=== PATIENT | female | born 1940 | race African-American/Black ===

== ENCOUNTER 2017-03-11 17:13 | Emergency (ER) | payer OTHER ==
--- NOTE | 2017-03-11 17:29 | PDOC ---
Attending Attestation - Resident Resident Name: Levi Wu - ED Attending Attestation I have performed the following: I have examined & evaluated the patient, The case was reviewed & discussed with the resident, I agree w/resident's findings & plan, Exceptions are as noted - HPI HPI: 03/11/17 17:28 low blood sugar - Physicial Exam PE: 03/11/17 17:28 Awake Conversant Feeling Better after arrival by EMS VSS - Medical Decision Making 03/11/17 17:[address] Wu Assessment and Plan
[2017-03-11 17:48] VITALS: TEMP 97.6; BMI 22.2
--- NOTE | 2017-03-11 18:12 | PDOC ---
History of Present Illness - General Chief Complaint: Blood Sugar Problem Stated Complaint: BLOOD SUGAR PROBLEM Time Seen by Provider: 03/11/17 17:25 History Source: Patient, Family Exam Limitations: Other (patient is a poor historian) - History of Present Illness Initial Comments: 03/11/17 18:01 Patient is a 77F with history of glaucoma (s/p left eye removal), DM, HTN and seizures here today complaining of hypoglycemia. EMS reports that her initial blood sugar was in the 30s. They were unable to obtain IV access in the field so they used IM glucagon. Her blood sugar was then in the 80s. Repeat blood sugar in the ED was 108. Patient's family says that she only ate some chicken soup today, but the patient says she's eating good. Patient has poor insight into her condition. She does not know what her medications are other than she doesn't take insulin. She denies any symptoms, including chest pain, shortness of breath, abdominal pain and headache. She denies urinating on herself, despite her smelling of urine. Past History - Past Medical History Allergies/Adverse Reactions: Allergies Allergy/AdvReac Type Severity Reaction Status Date / Time No Known Allergies Allergy Verified 03/11/17 17:50 Home Medications: Ambulatory Orders Unobtainable Home Med List 0 dose .ROUTE UTDICT 04/17/12 Diabetes: Yes Seizures: Yes - Suicide/Smoking/Psychosocial Hx Smoking Status: No Smoking History: Current every day smoker Years of Tobacco Use: 20 Have you smoked in the past 12 months: Yes Number of Cigarettes Smoked Daily: 3 Information on smoking cessation initiated: No Hx Alcohol Use: Yes Drug/Substance Use Hx: No Substance Use Type: Alcohol Review of Systems - Review of Systems Comments:: 03/11/17 18:12 GENERAL/CONSTITUTIONAL: No fever or chills. No weakness. HEAD, EYES, EARS, NOSE AND THROAT: No change in vision. No sore throat. CARDIOVASCULAR: No chest pain or shortness of breath RESPIRATORY: No cough, wheezing, or hemoptysis. GASTROINTESTINAL: No nausea, vomiting, diarrhea or constipation. GENITOURINARY: No dysuria, frequency, or change in urination. MUSCULOSKELETAL: No joint or muscle swelling or pain. No neck or back pain. SKIN: No rash NEUROLOGIC: No headache, vertigo, loss of consciousness, or change in strength/ sensation. ENDOCRINE: No increased thirst. No abnormal weight change ALLERGIC/IMMUNOLOGIC: No hives or skin allergy. *Physical Exam - Vital Signs Last Vital Signs Temp Pulse Resp BP Pulse Ox 97.6 F 60 20 178/93 99 03/11/17 17:36 03/11/17 17:36 03/11/17 17:36 03/11/17 17:36 03/11/17 17:36 - Physical Exam Comments: 03/11/17 18:12 GENERAL: Awake, alert, and fully oriented, in no acute distress, smells of urine HEAD: No signs of trauma, normocephalic, atraumatic EYES: PERRLA, EOMI, left eye removed, sclera anicteric, conjunctiva clear ENT: Auricles normal inspection, hearing grossly normal, nares patent, oropharynx clear without exudates. Moist mucosa LUNGS: No distress, speaks full sentences, clear to auscultation bilaterally HEART: Regular rate and rhythm, normal S1 and S2, no murmurs, rubs or gallops, peripheral pulses normal and equal bilaterally. ABDOMEN: Soft, nontender, normoactive bowel sounds. No guarding, no rebound. No masses EXTREMITIES: Normal inspection, Normal range of motion, no edema. No clubbing or cyanosis. NEUROLOGICAL: Cranial nerves II through XII grossly intact. Normal speech, normal gait, no focal sensorimotor deficits SKIN: Warm, Dry, normal turgor, no rashes or lesions noted. ED Treatment Course - LABORATORY CBC & Chemistry Diagram: 03/11/17 18:10 03/11/17 18:10 - ADDITIONAL ORDERS Additional order review: Laboratory Results 03/11/17 17:33 POC Glucometer [id number] 03/11/17 17:33 POC Glucometer [id number] - RADIOLOGY Radiology Studies Ordered: Category Date Time Status CHEST X-RAY PORTABLE* [RAD] Stat Radiology 03/11/17 17:49 Ordered Medical Decision Making - Medical Decision Making 03/11/17 18:13 Patient is a 77F with history of DM, HTN, seizures and glaucoma s/p left eye removal here today with hypoglycemia. Given food in the ED. Patient hypertensive initially to 178/93. Given poor history will do broader workup. Will do labs, ekg, cxr, ua. Vital signs stable. EKG shows sinus bradycardia (rate=55bpm) with 1st degree av block (KS = 220) and one PVC. No ST elevations or depressions. ST inversion in III. 03/11/17 18:51 CXR shows no acute cardiopulmonary process. 03/11/17 19:15 Laboratory Tests 03/11/17 03/11/17 18:10 18:10 WBC 5.2 D Hgb 14.6 Hct 42.9 Plt Count 230 BUN 20 H D Creatinine 1.6 H D Creat Clearance w eGFR 31.09 Random Glucose 112 H D Troponin I < 0.02 CBC normal. Cr 1.6, last recorded value 0.9. Unsure if this is an ELIAZAR or simply a movement in patient's baseline. Will call [facility] for more information. Will give 500mL in the meantime. Trop neg. 03/11/17 21:27 Call put out to PCP, unanswered. Believe that patient was volume depleted after decreased PO intake. Given 1L NS and patient continues to be symptom free. Left message with PCP answering service to arrange for more assistance with Ms Camarillo. Given return precautions and cautioned to eat before taking her diabetes medication. *DC/Admit/Observation/Transfer Diagnosis at time of Disposition: Hypoglycemia - Discharge Dispostion Disposition: HOME Condition at time of disposition: Good Admit: No - Referrals Referrals: Ann Vaughn MD [Primary Care Provider] - - Patient Instructions Printed Discharge Instructions: DI for Hypoglycemia - Post Discharge Activity Forms/Work/School Notes: Back to Work
[2017-03-11 18:16] LABS: BASOPHIL 0.2 % (0-2.0); EOSINOPHIL 0.3 % (0-4.5); MCH 28.6 pg (25.7-33.7); MEAN PLT VOLUME 8.5 fl (7.5-11.1); NEUTROPHILS 53.1 % (42.8-82.8); PLATELET COUNT 230 K/MM3 (134-434); RDW 13.8 % (11.6-15.6); WHITE BLOOD COUNT 5.2 K/mm3 (4.0-10.0)
[2017-03-11 18:41] LABS: INR 0.98 (0.82-1.09); PROTHROMBIN TIME (PATIENT) 10.8 SEC (9.98-11.88)
[2017-03-11 18:50] LABS: ANION GAP 14 (8-16); CALCIUM 9.3 mg/dL (8.5-10.1); CO2 25 mmol/L (21-32); CREATININE 1.6 mg/dL (0.55-1.02); GLUCOSE,RANDOM 112 mg/dL (74-106); MAGNESIUM 2.1 mg/dL (1.8-2.4); SGOT/AST 15 U/L (15-37); SGPT/ALT 15 U/L (12-78)
[2017-03-11 18:54] LABS: ALK PHOS 59 U/L (45-117); BILIRUBIN,TOTAL 0.5 mg/dL (0.2-1.0); CPK 150 IU/L (26-192); TOT PROT 7.7 g/dl (6.4-8.2); TROPONIN I < 0.02 ng/ml (0.00-0.05)
[2017-03-11] MEDS ORDERED: SODIUM CHLORIDE 500 ML IV STA (19:12)
[2017-03-11 21:17] LABS: URINE APPEARANCE CLEAR; URINE BILIRUBIN NEGATIVE (NEGATIVE); URINE BLOOD 1+ (NEGATIVE); URINE COLOR YELLOW; URINE GLUCOSE (UA) NEGATIVE (NEGATIVE); URINE KETONE TRACE (NEGATIVE); URINE LEUK ESTERASE NEGATIVE (NEGATIVE); URINE NITRITE NEGATIVE (NEGATIVE); URINE PROTEIN NEGATIVE (NEGATIVE); URINE UROBILINOGEN NEGATIVE mg/dL (0.2-1.0)
[2017-03-11 21:21] LABS: URINE BACTERIA RARE /hpf (NONE SEEN); URINE HYALINE CAST 3 /lpf; URINE MUCUS RARE; URINE RBC 2 /hpf (0-3); URINE WBC 1 /hpf (3-5)
[2017-03-12 00:16] VITALS: BP 140/89; PULSE 70
--- NOTE | 2017-03-12 09:52 | EKG ---
Test Reason : Blood Pressure : / mmHG Vent. Rate : 055 BPM Atrial Rate : 055 BPM P-R Int : 220 ms QRS Dur : 094 ms QT Int : 474 ms P-R-T Axes : 081 006 016 degrees QTc Int : 453 ms SINUS BRADYCARDIA WITH 1ST DEGREE A-V BLOCK WITH OCCASIONAL PREMATURE VENTRICULAR COMPLEXES RSR' OR QR PATTERN IN V1 SUGGESTS RIGHT VENTRICULAR CONDUCTION DELAY WHEN COMPARED WITH ECG OF 03-OCT-2013 19:06, PREMATURE VENTRICULAR COMPLEXES ARE NOW PRESENT VENT. RATE HAS DECREASED BY 33 BPM Confirmed by RUDDY CONTI MD ([id number]) on 03/12/2017 9:52:13 AM Referred By: Confirmed By:RUDDY CONTI MD
== END 2017-03-12 00:16 | disposition home or self-care (01) ==
LOC: JER 17:13
PROC: 3E0337Z Introduction of Electrolytic and Water Balance Substance into Peripheral Vein, Percutaneous Approach (ICD-10-PCS; principal; 2017-03-11)
DX: E11.49 Type 2 diabetes mellitus with other diabetic neurological complication (principal); I10 Essential (primary) hypertension; G40.909 Epilepsy, unspecified, not intractable, without status epilepticus; H40.9 Unspecified glaucoma; Z90.01 Acquired absence of eye
CPT/HCPCS: 36415; 71010-TC; 80053; 81003; 81015; 82553; 83735; 84484; 85025; 85610; 93005; 93010; 99284-25

== ENCOUNTER 2017-09-03 09:49 | Inpatient (IN) | payer OTHER ==
[2017-09-03 10:06] VITALS: BMI 28.3
[2017-09-03] MEDS ORDERED: ACETAMINOPHEN 1000 MG/100 ML VIAL (NON FORMULARY) IVPB ONE (10:27)
[2017-09-03] MEDS ORDERED: ACETAMINOPHEN INJECTION 100 ML IVPB ONE (10:47)
--- NOTE | 2017-09-03 11:00 | PDOC ---
History of Present Illness - History of Present Illness Initial Comments: 09/03/17 10:58 "The patient is a 77 year old female, with a significant past medical history of glaucoma (s/p left eye removal), diabetes mellitus, hypertension, and seizures, who presents to the emergency department with R hip pain s/p on Wednesday (5 days ago). The patient states she was walking down stairs and missed the last step, falling forward onto her right side. The patient states she was able to brace herself before falling and denies any head injury or loss of consciousness. The patient denies any lightheadedness, chest pain, shortness of breath, palpitations, nausea or diaphoresis prior to falling. The patient is here today complaining of right hip pain rated 10/10 in intensity. The patient reports she has been unable to bear weight on her right leg s/p fall and has been only able to sit up in bed since the fall. Her ROM in the R hip is severely limited 2/2 pain. She denies any headache or dizziness. She denies any neck or back pain. She denies any bowel or bladder incontinence. She denies any numbness, weakness or loss of sensation. She denies recent chest pain or shortness of breath. Allergies: NKA Primary Care Physician: Dr. Ann Diamond " <Eric Domingo - Last Filed: 09/03/17 13:09> <Rob Noel - Last Filed: 09/03/17 13:14> - General Chief Complaint: Injury Stated Complaint: FALL Time Seen by Provider: 09/03/17 10:01 Past History - Past Medical History COPD: No Diabetes: Yes Seizures: Yes Other medical history: blind in lt eye - Suicide/Smoking/Psychosocial Hx Smoking Status: No Smoking History: Current every day smoker Years of Tobacco Use: 20 Have you smoked in the past 12 months: Yes Number of Cigarettes Smoked Daily: 2 Information on smoking cessation initiated: No Hx Alcohol Use: No Drug/Substance Use Hx: No Substance Use Type: Alcohol <Eric Domingo - Last Filed: 09/03/17 13:09> <Rob Noel - Last Filed: 09/03/17 13:14> - Past Medical History Allergies/Adverse Reactions: Allergies Allergy/AdvReac Type Severity Reaction Status Date / Time No Known Allergies Allergy Verified 09/03/17 10:00 Home Medications: Ambulatory Orders Clonidine HCl 0.1 mg PO DAILY 09/03/17 Glipizide [Glipizide ER] 2.5 mg PO BID 09/03/17 Losartan/Hydrochlorothiazide [Losartan-Hctz 100-25 mg Tab] 1 each PO DAILY 09/03 Metformin HCl 500 mg PO BID 09/03/17 Omeprazole 20 mg PO DAILY 09/03/17 Simvastatin [Zocor -] 40 mg PO HS 09/03/17 Review of Systems - Review of Systems Comments:: 09/03/17 11:00 "GENERAL/CONSTITUTIONAL: No fever or chills. No weakness. HEAD, EYES, EARS, NOSE AND THROAT: No change in vision. No ear pain or discharge. No sore throat. CARDIOVASCULAR: No chest pain or shortness of breath. RESPIRATORY: No cough, wheezing, or hemoptysis. GASTROINTESTINAL: No nausea, vomiting, diarrhea or constipation. GENITOURINARY: No dysuria, frequency, or change in urination. MUSCULOSKELETAL: (+) Right hip pain. No neck or back pain. SKIN: No rash NEUROLOGIC: No headache, vertigo, loss of consciousness, or change in strength/ sensation. ENDOCRINE: No increased thirst. No abnormal weight change. HEMATOLOGIC/LYMPHATIC: No anemia, easy bleeding, or history of blood clots. ALLERGIC/IMMUNOLOGIC: No hives or skin allergy. " <Eric Domingo - Last Filed: 09/03/17 13:09> *Physical Exam - Vital Signs Last Vital Signs Temp Pulse Resp BP Pulse Ox 98 H 14 116/72 100 09/03/17 10:00 09/03/17 10:00 09/03/17 10:00 09/03/17 10:00 - Physical Exam Comments: 09/03/17 11:00 "GENERAL: Awake, alert, and fully oriented, in no acute distress HEAD: No signs of trauma EYES: PERRLA, EOMI, sclera anicteric, conjunctiva clear ENT: Auricles normal inspection, hearing grossly normal, nares patent, oropharynx clear without exudates. Moist mucosa NECK: Nontender, no stepoffs, Normal ROM, supple, no lymphadenopathy, JVD, or masses LUNGS: Breath sounds equal, clear to auscultation bilaterally. No wheezes, and no crackles HEART: Regular rate and rhythm, normal S1 and S2, no murmurs, rubs or gallops ABDOMEN: Soft, nontender, normoactive bowel sounds. No guarding, no rebound. No masses EXTREMITIES: RLE externally rotated, TTP over proximal femur, distal pulses and sensation intact, pelvis stable NEUROLOGICAL: Cranial nerves II through XII intact. 5/5 strength and sensation in all extremities, Normal speech, normal gait, normal cerebellar function SKIN: Warm, Dry, normal turgor, no rashes or lesions noted. " <Eric Domingo - Last Filed: 09/03/17 13:09> - Vital Signs Last Vital Signs Temp Pulse Resp BP Pulse Ox 98 H 14 116/72 100 09/03/17 10:00 09/03/17 10:00 09/03/17 10:00 09/03/17 10:00 <Rob Noel - Last Filed: 09/03/17 13:14> ED Treatment Course - LABORATORY CBC & Chemistry Diagram: 09/03/17 10:30 09/03/17 11:00 - RADIOLOGY Radiology Studies Ordered: Category Date Time Status HEAD CT WITHOUT CONTRAST [CT] Stat CT Scan 09/03/17 10:26 Ordered HIP & PELVIS-RIGHT [RAD] Stat Radiology 09/03/17 10:26 Ordered - Medications Given in the ED: ED Medications Discontinued Medications Generic Name Dose Route Start Last Admin Trade Name Ilsa PRN Reason Stop Dose Admin Acetaminophen 1,000 mg 09/03/17 10:27 09/03/17 10:52 Ofirmev Injection - IVPB 09/03/17 10:28 1,000 mg ONCE ONE Administration <Eric Domingo - Last Filed: 09/03/17 13:09> - LABORATORY CBC & Chemistry Diagram: 09/03/17 10:30 09/03/17 11:00 - ADDITIONAL ORDERS Additional order review: 09/03/17 10:30 RBC 4.40 MCV 85.4 MCHC 33.3 RDW 14.1 MPV 8.1 Neutrophils % 63.8 D Lymphocytes % 26.1 D Monocytes % 8.9 D Eosinophils % 0.9 D Basophils % 0.3 - RADIOLOGY Radiograph Interpretation: 09/03/17 12:41 EXAM#: TYPE/EXAM: RESULT: [id number] CT/HEAD CT WITHOUT CONTRAST INDICATION: Status post fall. TECHNIQUE: Axial noncontrast head CT with coronal and sagittal reformations. COMPARISON: 04/17/[address] FINDINGS: There is no acute intracranial hemorrhage or focal extra-axial collection. There is no compelling evidence of acute transcortical infarction at this time. MRI is more sensitive in detecting acute infarctions. There is generalized, age-related cerebral and cerebellar volume loss. There is no mass effect, midline shift or hydrocephalus. Extensive confluent hypoattenuation within the deep cerebral white matter and patchy hypoattenuation within the subcortical cerebral white matter, gangliocapsular regions and left thalamus appears similar to the prior CT, most likely microvascular ischemic changes. There is calcific atherosclerosis along bilateral internal carotid artery siphons. The calvarium is intact. The visualized paranasal sinuses and mastoid air cells are clear. 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 IMPRESSION: 1. No definite interval change from 04/17/[address] No acute intracranial hemorrhage, mass effects, hydrocephalus or calvarial fracture. 2. Generalized, age-related volume loss and extensive severe microvascular ischemic changes as described above, similar to 04/17/2012 CT. Reported By: Keiko Ogden DO 09/03/17 13:13 EXAM#: TYPE/EXAM: RESULT: [id number] RAD/HIP PELVIS-RIGHT Indication: Trauma with deformity of the right hip Pelvis and right hip submitted for evaluation. Examination reveals a angulated, rotated intertrochanteric fracture. Comminution is present. Vascular calcifications are seen. Calcified pelvic phleboliths noted. Joint space is preserved. IMPRESSION: Right intertrochanteric fracture with angulation, comminution and rotation. Reported By: Carlos Nina MD - Medications Given in the ED: ED Medications Discontinued Medications Generic Name Dose Route Start Last Admin Trade Name Freq PRN Reason Stop Dose Admin Acetaminophen 1,000 mg 09/03/17 10:27 09/03/17 10:52 Ofirmev Injection - IVPB 09/03/17 10:28 1,000 mg ONCE ONE Administration <Rob Nole - Last Filed: 09/03/17 13:14> Medical Decision Making - Medical Decision Making 09/03/17 11:01 77 F with R hip pain and deformity s/p mechanical fall. Possible R hip fx. Pt with no signs of head or neck injury but given age and mechanism, will obtain head CT. - Labs - CT head - XR R hip, pelvis - Pain control 09/03/17 13:06 CT head unremarkable. XR shows R femoral neck fx Ortho consulted Pt admitted to hospitalist. <Eric Domigno - Last Filed: 09/03/17 13:09> - Medical Decision Making 09/03/17 12:[address] Breaux. Case discussed with covering PA Camilo Barney. <Rob Noel - Last Filed: 09/03/17 13:14> *DC/Admit/Observation/Transfer - Discharge Dispostion Admit: Yes - Attestations Physician Attestion: 09/03/17 13:10 I, Dr. Eric Domingo MD, attest that this document has been prepared under my direction and personally reviewed by me in its entirety. I further attest, that it accurately reflects all work, treatment, procedures and medical decision -making performed by me. <Eric Domingo - Last Filed: 09/03/17 13:09> - Attestations Scribe Attestion: 09/03/17 11:11 Documentation prepared by Rob Noel, acting as medical insurance clerk for Eric Domingo MD. <Rob Noel - Last Filed: 09/03/17 13:14> Diagnosis at time of Disposition: Hip fracture - Referrals Referrals: Ann Vaughn MD [Primary Care Provider] - - Patient Instructions - Post Discharge Activity
[2017-09-03] MEDS ORDERED: morphine CARPU-JECT 4 MG/1 ML DISP.SYRIN IVPUSH ONE (11:02)
[2017-09-03 11:05] LABS: BASO % 0.3 % (0-2.0); EOS % 0.9 % (0-4.5); HEMATOCRIT 37.6 % (32.4-45.2); HEMOGLOBIN 12.5 GM/dL (10.7-15.3); LYMPH % 26.1 % (8-40); MCH 28.5 pg (25.7-33.7); MCHC 33.3 g/dl (32.0-36.0); MEAN CELL VOLUME 85.4 fl (80-96); MEAN PLT VOLUME 8.1 fl (7.5-11.1); MONO % 8.9 % (3.8-10.2); NEUT % 63.8 % (42.8-82.8); PLATELET COUNT 220 K/MM3 (134-434); RDW 14.1 % (11.6-15.6)
[2017-09-03] MEDS ORDERED: morphine SULFATE 4 MG/ML VIAL ONE (13:03)
--- NOTE | 2017-09-03 13:03 | HP ---
CHIEF COMPLAINT: "My hip hurts" PCP: Dr. Ann Diamond HISTORY OF PRESENT ILLNESS: This is a 77 yo F, with PMH of glaucoma (s/p left eye removal), NIDDM, HTN, and SZ d/op (no longer on meds), who presents s/p mechanical fall on Wednesday (5 days ago). She was walking down the stairs, missed a step and fell on her R hip w/o head trauma. Her cousin, who lives in the same building helped her to bed and has been taking care of her for the past 5 days. She has not been able to get out of bed due to 10/10 pain in R hip. This is her first fracture. Before this injury she was able to ambulate with cane METS 5. She has not been on any blood thinners and has not drank or eaten since last night. She takes her medications regularly. She denies CP, sob, cough, weakness or numbness. ER course was notable for: (1)labs (2)cxr, ekg, R hip x ray (3)morphine Recent Travel: denies PAST MEDICAL HISTORY: as above PAST SURGICAL HISTORY: denies Social History: as above Smokin cig/day x 15 yrs Alcohol: on weekends Drugs: denies Family History: MD in mother Allergies No Known Allergies Allergy (Verified 09/03/17 10:00) HOME MEDICATIONS: Home Medications Medication Instructions Recorded Clonidine HCl 0.1 mg PO DAILY 09/03/17 Glipizide [Glipizide ER] 2.5 mg PO BID 09/03/17 Losartan/Hydrochlorothiazide 1 each PO DAILY 09/03/17 [Losartan-Hctz 100-25 mg Tab] Metformin HCl 500 mg PO BID 09/03/17 Omeprazole 20 mg PO DAILY 09/03/17 Simvastatin [Zocor -] 40 mg PO HS 09/03/17 REVIEW OF SYSTEMS CONSTITUTIONAL: Absent: fever, chills Absent: rhinorrhea, nasal congestion, throat pain CARDIOVASCULAR: Absent: chest pain, syncope, palpitations, irregular heart rate, lightheadedness , peripheral edema RESPIRATORY: Absent: cough, shortness of breath, dyspnea with exertion, orthopnea, wheezing, stridor, hemoptysis GASTROINTESTINAL: Absent: abdominal pain, abdominal distension, nausea, vomiting, diarrhea, constipation GENITOURINARY: Absent: dysuria MUSCULOSKELETAL: Absent: back pain, neck pain SKIN: Absent: rash, itching, pallor HEMATOLOGIC/IMMUNOLOGIC: Absent: easy bleeding, easy bruising ENDOCRINE: Absent: unexplained weight gain, unexplained weight loss NEUROLOGIC: Absent: headache, focal weakness or paresthesias PSYCHIATRIC: Absent: anxiety, depression PHYSICAL EXAMINATION Vital Signs - 24 hr 09/03/17 10:00 Pulse Rate 98 H Respiratory 14 Rate Blood Pressure 116/72 O2 Sat by Pulse 100 Oximetry (%) GENERAL: Awake, alert, and fully oriented, in no acute distress. HEAD: Normal with no signs of trauma. EYES: S/p L eye removal. R pupil round and reactive to light, extraocular movements intact, sclera anicteric, conjunctiva clear. No lid lag, +catarract. EARS, NOSE, THROAT: Moist mucous membranes. NECK: supple without JVD LUNGS: Breath sounds equal, clear to auscultation bilaterally HEART: Regular rate and rhythm, normal S1 and S2 without murmur ABDOMEN: Soft, nontender, not distended, normoactive bowel sounds, no guarding, no rebound, no masses. MUSCULOSKELETAL: No CVA tenderness. UPPER EXTREMITIES: 2+ pulses, warm, well-perfused. No cyanosis. No clubbing. No peripheral edema. LOWER EXTREMITIES: 1+ pulses, warm, well-perfused. No calf tenderness. No peripheral edema. RLE shorter, externally rotates, severe pain, sensation intact NEUROLOGICAL: Cranial nerves II-XII grossly intact. Normal speech. PSYCHIATRIC: Cooperative. Good eye contact. Appropriate mood and affect. SKIN: Warm, dry Laboratory Results - last 24 hr 09/03/17 09/03/17 09/03/17 10:30 11:00 11:00 WBC 6.0 RBC 4.40 Hgb 12.5 D Hct 37.6 MCV 85.4 MCH 28.5 MCHC 33.3 RDW 14.1 Plt Count 220 MPV 8.1 Neutrophils % 63.8 D Lymphocytes % 26.1 D Monocytes % 8.9 D Eosinophils % 0.9 D Basophils % 0.3 PT with INR Cancelled INR Cancelled PTT (Actin FS) Cancelled Sodium Cancelled Potassium Cancelled Chloride Cancelled Carbon Dioxide Cancelled Anion Gap Cancelled BUN Cancelled Creatinine Cancelled Creat Clearance w eGFR Cancelled Random Glucose Cancelled Calcium Cancelled Total Bilirubin Cancelled AST Cancelled ALT Cancelled Alkaline Phosphatase Cancelled Total Protein Cancelled Albumin Cancelled ASSESSMENT/PLAN: This is a 77 yo F, with PMH of glaucoma (s/p left eye removal), NIDDM, HTN, and SZ d/op (no longer on meds), who presents s/p mechanical fall on Wednesday (5 days ago R hip fracture -Ortho consult appreciated, requires surgical repair w gamma nail -NPO -Morphine, IV tylenol for pain -Lovenox 24 hr after surgery x 2 w then switch to asa. -low risk for intermediate risk surgery HTN -would give clonidine now if hasn't taken in in the AM to avoid refractory malignant htn -hold HCTZ, resume home meds tomorrow morning NIDDM -hold po meds -ISS, BGM -D5W IV to avoid hypoglycemia ADM m/s Problem List - Problem (1) HTN (hypertension) Code(s): I10 - ESSENTIAL (PRIMARY) HYPERTENSION (2) NIDDY (non-insulin dependent diabetes mellitus in young) Code(s): E13.9 - OTHER SPECIFIED DIABETES MELLITUS WITHOUT COMPLICATIONS (3) Smoker Code(s): F17.200 - NICOTINE DEPENDENCE, UNSPECIFIED, UNCOMPLICATED (4) Hip fracture Code(s): S72.009A - FRACTURE OF UNSP PART OF NECK OF UNSP FEMUR, INIT Visit type - Emergency Visit Emergency Visit: Yes ED Registration Date: 09/03/17 Care time: The patient presented to the Emergency Department on the above date and was hospitalized for further evaluation of their emergent condition. - New Patient This patient is new to me today: Yes Date on this admission: 09/03/17 - Critical Care Critical Care patient: No
--- NOTE | 2017-09-03 13:31 | CON.ORTH ---
Consult Reason for Consultation:: right hip fx - Alcohol/Substance Use Hx Alcohol Use: No - Smoking History Smoking history: Current every day smoker Have you smoked in the past 12 months: Yes Aproximately how many cigarettes per day: 2 Home Medications - Allergies Allergies/Adverse Reactions: Allergies Allergy/AdvReac Type Severity Reaction Status Date / Time No Known Allergies Allergy Verified 09/03/17 10:00 - Home Medications Home Medications: Ambulatory Orders Clonidine HCl 0.1 mg PO DAILY 09/03/17 Glipizide [Glipizide ER] 2.5 mg PO BID 09/03/17 Losartan/Hydrochlorothiazide [Losartan-Hctz 100-25 mg Tab] 1 each PO DAILY 09/03 Metformin HCl 500 mg PO BID 09/03/17 Omeprazole 20 mg PO DAILY 09/03/17 Simvastatin [Zocor -] 40 mg PO HS 09/03/17 Physical Exam for Ortho Vital Signs: Vital Signs Temperature Pulse Rate 98 H 09/03/17 10:00 Respiratory Rate 14 09/03/17 10:00 Blood Pressure 116/72 09/03/17 10:00 O2 Sat by Pulse Oximetry (%) 100 09/03/17 10:00 Labs: CBC, BMP 09/03/17 10:30 09/03/17 11:00 INR, PTT INR Cancelled 09/03/17 11:00 - Lower Extremity Hip: Yes: Right, Decreased ROM, Leg Externally Rotated, Leg Shortened, Pain, Swelling, Other (nvi) Imaging - Results X-ray: Report Reviewed, Image Reviewed Assessment/Plan 77 year old female, with a significant past medical history of glaucoma (s/p left eye removal), diabetes mellitus, hypertension, and seizures, who presents to the emergency department with R hip pain s/p on Wednesday (5 days ago). The patient states she was walking down stairs and missed the last step, falling forward onto her right side. The patient states she was able to brace herself before falling and denies any head injury or loss of consciousness. The patient denies any lightheadedness, chest pain, shortness of breath, palpitations, nausea or diaphoresis prior to falling. The patient is here today complaining of right hip pain rated 10/10 in intensity. The patient reports she has been unable to bear weight on her right leg s/p fall and has been only able to sit up in bed since the fall. a/p right low femoral neck fx Risks and benefits were d/w pt in detail Will require right IM gamma nail PT states that she has not had anything to eat/drink today Pt to be cleared by medical team OR today for right IM gamma nail NPO d/w Dr. Mojica
[2017-09-03] MEDS ORDERED: SODIUM CHLORIDE 1,000 ML IV SCH ×2 (13:45→15:52)
[2017-09-03] MEDS ORDERED: morphine SULFATE 4 MG/ML VIAL IVPUSH PRN (14:06)
[2017-09-03] MEDS ORDERED: LACTATED RINGERS SOLUTION 1,000 ML IV SCH (14:15)
--- NOTE | 2017-09-03 14:16 | DS ---
Physical Exam: SUBJECTIVE: Patient seen and examined OBJECTIVE: Vital Signs Period Temp Pulse Resp BP Sys/Esqueda Pulse Ox Last 24 Hr 97.9 F 72-98 14-18 116-118/70-72 99-100 PHYSICAL EXAM GENERAL: The patient is awake, alert, and fully oriented, in no acute distress. HEAD: Normal with no signs of trauma. EYES: PERRL, extraocular movements intact, sclera anicteric, conjunctiva clear. ENT: Ears normal, nares patent, oropharynx clear without exudates, moist mucous membranes. NECK: Trachea midline, full range of motion, supple. LUNGS: Breath sounds equal, clear to auscultation bilaterally, no wheezes, no crackles, no accessory muscle use. HEART: Regular rate and rhythm, S1, S2 without murmur, rub or gallop. ABDOMEN: Soft, nontender, nondistended, normoactive bowel sounds, no guarding, no rebound, no hepatosplenomegaly, no masses. EXTREMITIES: 2+ pulses, warm, well-perfused, no edema. NEUROLOGICAL: Cranial nerves II through XII grossly intact. Normal speech, gait not observed. PSYCH: Normal mood, normal affect. SKIN: Warm, dry, normal turgor, no rashes or lesions noted. LABS Laboratory Results - last 24 hr 09/03/17 09/03/17 09/03/17 10:30 11:00 11:00 WBC 6.0 RBC 4.40 Hgb 12.5 D Hct 37.6 MCV 85.4 MCH 28.5 MCHC 33.3 RDW 14.1 Plt Count 220 MPV 8.1 Neutrophils % 63.8 D Lymphocytes % 26.1 D Monocytes % 8.9 D Eosinophils % 0.9 D Basophils % 0.3 PT with INR Cancelled INR Cancelled PTT (Actin FS) Cancelled Sodium Cancelled Potassium Cancelled Chloride Cancelled Carbon Dioxide Cancelled Anion Gap Cancelled BUN Cancelled Creatinine Cancelled Creat Clearance w eGFR Cancelled Random Glucose Cancelled Calcium Cancelled Total Bilirubin Cancelled AST Cancelled ALT Cancelled Alkaline Phosphatase Cancelled Total Protein Cancelled Albumin Cancelled HOSPITAL COURSE: Date of Admission:09/03/17 Date of Discharge: 09/03/17 Discharge Summary Reason For Visit: FRACTURE OF HIP Current Active Problems HTN (hypertension) (Acute) Hip fracture (Acute) NIDDY (non-insulin dependent diabetes mellitus in young) (Acute) Smoker (Acute) - Instructions Referrals: Ann Vaughn MD [Primary Care Provider] - - Home Medications Comprehensive Discharge Medication List: Ambulatory Orders Clonidine HCl 0.1 mg PO DAILY 09/03/17 Glipizide [Glipizide ER] 2.5 mg PO BID 09/03/17 Losartan/Hydrochlorothiazide [Losartan-Hctz 100-25 mg Tab] 1 each PO DAILY 09/03 Metformin HCl 500 mg PO BID 09/03/17 Omeprazole 20 mg PO DAILY 09/03/17 Simvastatin [Zocor -] 40 mg PO HS 09/03/17
[2017-09-03 14:18] LABS: ALBUMIN 3.1 g/dl (3.4-5.0); ANION GAP 10 (8-16); BLOOD UREA NITROGEN 31 mg/dL (7-18); CALCIUM 8.9 mg/dL (8.5-10.1); CHLORIDE 100 mmol/L (98-107); CO2 27 mmol/L (21-32); CREATININE 1.3 mg/dL (0.55-1.02); GLUCOSE,RANDOM 110 mg/dL (74-106); POTASSIUM 4.1 mmol/L (3.5-5.1); SGOT/AST 32 U/L (15-37); SGPT/ALT 21 U/L (12-78); SODIUM 137 mmol/L (136-145)
[2017-09-03 14:20] LABS: ALK PHOS 52 U/L (45-117); BILIRUBIN,TOTAL 0.9 mg/dL (0.2-1.0); TOT PROT 6.8 g/dl (6.4-8.2)
[2017-09-03] MEDS ORDERED: PROPOFOL 20 ML ONE (14:40)
[2017-09-03] MEDS ORDERED: ceFAZolin SODIUM 1 GM VIAL IVPB ONE (14:40)
--- NOTE | 2017-09-03 14:56 | PN ---
Teaching Attending Note Name of Resident: Alia Ireland ATTENDING PHYSICIAN STATEMENT I saw and evaluated the patient. I reviewed the resident's note and discussed the case with the resident. I agree with the resident's findings and plan as documented. SUBJECTIVE: 77yo F wtih PMH DM, HTN. seizures and glaucoma presenting to the ER s/p mechanical fall. states she tripped over a step landing on her R side 5 days ago. Finally came to the hospital as pain did not improve. denies any symptoms prior to falling, denies LOC, striking her head, CP, SOB, fever, chills, N/V/C/D no complications with anesthesia in the past OBJECTIVE: Last Vital Signs Temp Pulse Resp BP Pulse Ox 97.9 F 72 18 118/70 99 09/03/17 14:13 09/03/17 14:13 09/03/17 14:15 09/03/17 14:13 09/03/17 14:15 General NAD HEENT L orbit depressed CV S1 S2 RRR no murmur/rub/gallop Lungs CTA anteriorly Abdomen soft NT/ND obese Extremities RLE short and externally rotated ASSESSMENT AND PLAN: 77yo F wtih PMH DM, HTN. seizures and glaucoma presenting to the ER s/p mechanical fall and found to have R intertrochanter fracture 1. R inter-trochanteric fracture- due to mechanical fall. pt is low risk for intermediate risk procedure. METS >4. orthopedics consulted. NPO for surgery. D5w awaiting surgery. aggressive mobilization post-op. pain control 2. ELIAZAR-likely dehydration vs medication induced (on HCTZ/ARB). start IVF. check urine lytes. avoid nephrotoxic medications 3. DM- hold oral agents. iss, bgm. diabetic diet when advanced. 4. HTN- controlled. hold HCTZ/ARB. monitor while holding. 5. Glaucoma- s/p L eye enucleation 6. DVT ppx- lovenox post-op 7. PT post surgery. will need [facility] placement
[2017-09-03 15:14] LABS: INR 1.04 (0.82-1.09); PROTHROMBIN TIME (PATIENT) 11.7 SEC (9.98-11.88)
[2017-09-03 15:17] LABS: ACTIVATED PTT 28.5 SECONDS (26.9-34.4)
--- NOTE | 2017-09-03 15:22 | OP ---
Operative Note - Note: Operative Date: 09/03/17 ([facility]) Pre-Operative Diagnosis: right IT fx Operation: right IM gamma nail Post-Operative Diagnosis: Same as Pre-op Surgeon: Douglas Mojica Shipping Weigher: Camilo Barney Anesthesiologist/SOLDER CREAM MAKER: Joselyn Castellon Anesthesia: General Estimated Blood Loss (mls): 50 Operative Report Dictated: Yes
--- NOTE | 2017-09-03 15:29 | SPEC ---
DATE OF OPERATION: 09/03/2017 PREOPERATIVE DIAGNOSIS: Right intertrochanteric hip fracture. POSTOPERATIVE DIAGNOSIS: Right intertrochanteric hip fracture. PROCEDURE: Right Gamma nailing. SURGICAL ATTENDING: Trista Mojica MD LABOR CONTRACTOR: ROSIO Montoya ANESTHESIA: General. CLOSURE: A short Gamma nail with appropriate interlocking screws, No. 1 Vicryl fascia, 2-0 subcutaneous, and ludy to skin. ESTIMATED BLOOD LOSS: Less than 100 mL. COMPLICATIONS: None. CONDITION: To Recovery in stable condition. DESCRIPTION OF THE PROCEDURE: The patient was taken to the operating room on September 03, 2017. IV Kefzol was administered prophylactically prior to the case. Anesthesia was administered by the anesthesiologist. The patient was then fastened to the fracture table with all prominences well padded. Excellent reduction of the fracture was confirmed in AP and lateral plane by use of fluoroscopy. The right hip area was then prepped and draped in the usual sterile fashion by use of a shower curtain. A small 2-cm longitudinal incision over the tip of the greater trochanter was incised, hemostasis achieved using Bovie cautery. Sharp dissection was carried through the fascia. A guidewire was drilled from the tip of the greater trochanter into the intramedullary canal past the fracture. This was directed by fluoroscopy in both the AP and lateral plane. This was overreamed with a proximal reamer. A short Gamma nail was then malleted down into place. Using the outrigger and a small stab incision laterally, a guidewire was drilled from the lateral aspect of the femur, through the joseph, through the neck into the femoral head. Proper placement was confirmed in the AP and lateral plane by using the image intensifier. The guidewire was measured for length, reamed with a triple reamer, and then screwed with the appropriate-sized lag screw. With the traction removed, the compression device was used to compress the fracture. A set screw was placed from above in the dynamic fashion. Again using the outrigger and through a small stab incision distally, a distal hole was drilled, depth gauged and screwed with the appropriate length locking screw in the static hole. The outrigger was removed. The x-rays in the AP and lateral plane revealed excellent position of the hardware with excellent reduction of the fracture. All incisions were irrigated out with copious amounts of irrigation. The fascia was closed in 0 Vicryl, 2-0 subcutaneous, and ludy to the skin. Sterile pressure dressing was applied, patient awakened from anesthesia and transferred to Recovery in stable condition. No complications. Estimated blood loss negligible. TRISTA MOJICA M.D. SHARI/[id number]
[2017-09-03] MEDS ORDERED: ONDANSETRON 4 MG/2 ML VIAL IVPUSH PRN (16:08)
[2017-09-03] MEDS ORDERED: INSULIN SLIDING SCALE (NOVOLOG) 1 VIAL SQ SCH ×2 (16:30)
--- NOTE | 2017-09-03 16:39 | HP ---
CHIEF COMPLAINT: R hip pain PCP: Dr. Ann NietoPhidelia HISTORY OF PRESENT ILLNESS: 77yo woman with PMH of NIDDM, HTN, L glaucoma (s/p enucleation), and seizure disorder (off medications) who presents with R hip pain s/p mechanical fall 5 days ago. Patient missed a step on indoor stairs and fell on her R side. She denies dizziness or lightheadedness prior to falling. Denies hitting her head or any LOC. She was unable to bear weight on her R leg after the fall. Her roommate and cousin helped her up and have been assisting in her ADLs since the fall. She presented today due to continued pain (10/10 severity) and lack of recovery. She denies any chest pain or chest discomfort during activities. No recent illness, fever, or chills. She last ate and drank yesterday. ER course was notable for: (1) CT -> R hip fracture (2) Ortho consulted (3) pre-op labs ordered Recent Travel: none PAST MEDICAL HISTORY: Glaucoma seizures - taken off medication HTN PAST SURGICAL HISTORY: L eye enucleation Social History: Lives at home with roommate; ambulates occasionally with cane Smokin cigarette per day x 15 years Alcohol: Denies Drugs: Denies Family History: IA mother; Unaware of any bleeding disorders or early cardiac events Allergies: No Known Allergies Allergy (Verified 09/03/17 10:00) HOME MEDICATIONS: Home Medications Medication Instructions Recorded Clonidine HCl 0.1 mg PO DAILY 09/03/17 Glipizide [Glipizide ER] 2.5 mg PO BID 09/03/17 Losartan/Hydrochlorothiazide 1 each PO DAILY 09/03/17 [Losartan-Hctz 100-25 mg Tab] Metformin HCl 500 mg PO BID 09/03/17 Omeprazole 20 mg PO DAILY 09/03/17 Simvastatin [Zocor -] 40 mg PO HS 09/03/17 REVIEW OF SYSTEMS CONSTITUTIONAL: Absent: fever, chills, diaphoresis, generalized weakness, malaise, loss of appetite, weight change HEENT: Absent: rhinorrhea, nasal congestion, throat pain, throat swelling, difficulty swallowing, mouth swelling, ear pain, eye pain, visual changes CARDIOVASCULAR: Absent: chest pain, syncope, palpitations, irregular heart rate, lightheadedness , peripheral edema RESPIRATORY: Absent: cough, shortness of breath, dyspnea with exertion, orthopnea, wheezing, stridor, hemoptysis GASTROINTESTINAL: Absent: abdominal pain, abdominal distension, nausea, vomiting, diarrhea, constipation, melena, hematochezia GENITOURINARY: Absent: dysuria, frequency, urgency, hesitancy, hematuria, flank pain, genital pain MUSCULOSKELETAL: Absent: myalgia, arthralgia, joint swelling, back pain, neck pain SKIN: Absent: rash, itching, pallor HEMATOLOGIC/IMMUNOLOGIC: Absent: easy bleeding, easy bruising, lymphadenopathy, frequent infections ENDOCRINE: Absent: unexplained weight gain, unexplained weight loss, heat intolerance, cold intolerance NEUROLOGIC: Absent: headache, focal weakness or paresthesias, dizziness, unsteady gait, seizure, mental status changes, bladder or bowel incontinence PSYCHIATRIC: Absent: anxiety, depression, suicidal or homicidal ideation, hallucinations. PHYSICAL EXAMINATION Vital Signs - 24 hr 09/03/17 09/03/17 09/03/17 10:00 10:20 14:13 Temperature 99.8 F H 97.9 F Pulse Rate 98 H Pulse Rate [ 72 Right Radial] Respiratory 14 18 Rate Blood Pressure 116/72 Blood Pressure 118/70 [Left Arm] O2 Sat by Pulse 100 99 Oximetry (%) GENERAL: elderly woman, lying in bed, AAOx3, nad HEAD: Normal with no signs of trauma. EYES: Left Pupils equal, round and reactive to light, extraocular movements intact, sclera anicteric, conjunctiva clear. No lid lag. EARS, NOSE, THROAT: Ears normal, nares patent, oropharynx clear without exudates. Moist mucous membranes. NECK: Normal range of motion, supple without lymphadenopathy, JVD, or masses. LUNGS: Breath sounds equal, clear to auscultation bilaterally. No wheezes, and no crackles. No accessory muscle use. HEART: Regular rate and rhythm, normal S1 and S2 without murmur, rub or gallop. ABDOMEN: Soft, NTND, + bowel sounds, no hepatosplenomegaly MUSCULOSKELETAL: limited ROM RLE UPPER EXTREMITIES: 2+ radial pulses, wwp, no peripheral edema LOWER EXTREMITIES: RLE shortened and externally rotated, ttp proximal femur, 2+ DP pulses bilaterally, no edema NEUROLOGICAL: Cranial nerves II-XII intact. Normal speech. 5/5 motor strength throughout except RLE limited movement 2/2 pain; sensation equal and intact RLE and LLE CBC, BMP 09/03/17 10:30 09/03/17 13:45 Hepatic Panel Total Bilirubin 0.9 mg/dL (0.2-1.0) D 09/03/17 13:45 AST 32 U/L (15-37) 09/03/17 13:45 ALT 21 U/L (12-78) 09/03/17 13:45 Alkaline Phosphatase 52 U/L (45-117) 09/03/17 13:45 Albumin 3.1 g/dl (3.4-5.0) L 09/03/17 13:45 INR, PTT INR 1.04 (0.82-1.09) 09/03/17 14:40 IMAGING: Head CT (09/03/17) IMPRESSION: 1. No definite interval change from 04/17/[address] No acute intracranial hemorrhage, mass effects, hydrocephalus or calvarial fracture. 2. Generalized, age-related volume loss and extensive severe microvascular ischemic changes as described above, similar to 04/17/2012 CT. R Hip XRAY (09/03/17): Right intertrochanteric fracture with angulation, comminution and rotation. EKG: Sinus rhythm with PACs, rate 93, normal access, QTc 452 ASSESSMENT/PLAN: 77yo woman with PMH of HTN, NIDDM, and glaucoma s/p L eye enucleation who presents after mechanical fall 5 days ago and found to have R intertrochanteric fracture. #R hip fracture, Patient is low risk for intermediate risk procedure, METS >4 -Ortho consulted, will repair with gamma nail this afternoon -NPO -Morphine and Tylenol IV PRN for pain control #HTN -restart home medications tomorrow AM (clonidine 0.1mg daily and Losartan/HCTZ 100-25mg QD) #NIDDM -hold home oral antiglycemics -BGM/ISS ACHS #HLD - Lipitor 20mg HS #FEN: LR per sx / lytes wnl / NPO, start DM, Na controlled after sx #PPX -DVT - Lovenox 40mg SQ daily 24h after surgery x 2wks, then ASA -GI - c/w home omeprazole 20mg QD #PT, early ambulationn #DISPO: m/s, d/c to [facility] FULL code d/w Dr. Paige Ireland MD PGY1 - Internal Medicine Visit type - Emergency Visit Emergency Visit: Yes ED Registration Date: 09/03/17 Care time: The patient presented to the Emergency Department on the above date and was hospitalized for further evaluation of their emergent condition. - New Patient This patient is new to me today: Yes Date on this admission: 09/03/17 - Critical Care Critical Care patient: No Hospitalist Screening - Colonoscopy Questionnaire Colonoscopy Questionnaire: Colonoscopy Questionnaire - Patient: 50 - 75 years old and never had a screening colonoscopy: No History of colon or rectal polyps, or CA: Unknown History of IBD, Crohn's disease or UC: Unknown History of abdominal radiation therapy as a child: Unknown - Relative: 1 with colon or rectal CA, or polyps at age 60 or younger: Unknown Colon or rectal CA diagnosed at age 45 or younger: Unknown Multiple relatives with colon or rectal CA: Unknown - Outcome: Screening Result: Negative Screen
[2017-09-03] MEDS: LACTATED RINGERS SOLUTION 1,000 ML IV SCH (17:00)
[2017-09-03] MEDS ORDERED: ATORVASTATIN CA 20 MG TABLET (FP) PO SCH (22:00)
[2017-09-03] MEDS ORDERED: glipiZIDE-XL 2.5 MG TAB.ER.24 PO SCH (22:00)
[2017-09-03] MEDS ORDERED: metFORMIN HCL 500 MG TABLET (FP) PO SCH (22:00)
[2017-09-03] MEDS: INSULIN SLIDING SCALE (NOVOLOG) 1 VIAL SQ SCH (22:31)
[2017-09-03] MEDS: ATORVASTATIN CA 20 MG TABLET (FP) PO SCH (22:32)
[2017-09-03] MEDS: morphine SULFATE 4 MG/ML VIAL IVPUSH PRN (22:33)
[2017-09-03] MEDS: CEFAZOLIN 1 GM/D5W 1 GM/50 ML BAG IVPB SCH (22:33)
[2017-09-03] MEDS ORDERED: CEFAZOLIN 1 GM/D5W 1 GM/50 ML BAG IVPB SCH (23:00)
[2017-09-04] MEDS: LACTATED RINGERS SOLUTION 1,000 ML IV SCH (06:09)
[2017-09-04] MEDS: CEFAZOLIN 1 GM/D5W 1 GM/50 ML BAG IVPB SCH (06:11)
[2017-09-04] MEDS: INSULIN SLIDING SCALE (NOVOLOG) 1 VIAL SQ SCH ×4 (06:42→21:43)
--- NOTE | 2017-09-04 07:59 | PN ---
Progress Note (short form) - Note Progress Note: Anesthesia Post op Pt seen and examined S:alert and awake O: Vital Signs Temperature 98.9 F 09/04/17 06:00 Pulse Rate 85 09/04/17 06:00 Respiratory Rate 18 09/03/17 21:00 Blood Pressure 143/64 09/04/17 06:00 O2 Sat by Pulse Oximetry (%) 100 09/03/17 21:00 A/P Current Active Problems HTN (hypertension) (Acute) Hip fracture (Acute) NIDDY (non-insulin dependent diabetes mellitus in young) (Acute) Smoker (Acute) s/pright gamma nail Doing well post op Continue current care Brandyn Amos MD
[2017-09-04 08:12] LABS: HEMATOCRIT 30.5 % (32.4-45.2); HEMOGLOBIN 10.4 GM/dL (10.7-15.3); MCH 28.7 pg (25.7-33.7); MCHC 33.9 g/dl (32.0-36.0); MEAN CELL VOLUME 84.4 fl (80-96); MEAN PLT VOLUME 8.3 fl (7.5-11.1); PLATELET COUNT 190 K/MM3 (134-434); RBC 3.61 M/mm3 (3.60-5.2); RDW 13.6 % (11.6-15.6); WHITE BLOOD COUNT 5.5 K/mm3 (4.0-10.0)
[2017-09-04 08:45] LABS: ALBUMIN 2.7 g/dl (3.4-5.0); ANION GAP 13 (8-16); BLOOD UREA NITROGEN 28 mg/dL (7-18); CALCIUM 8.3 mg/dL (8.5-10.1); CHLORIDE 97 mmol/L (98-107); CO2 26 mmol/L (21-32); GLUCOSE,RANDOM 116 mg/dL (74-106); POTASSIUM 3.6 mmol/L (3.5-5.1); SODIUM 136 mmol/L (136-145)
[2017-09-04 08:48] LABS: ALK PHOS 43 U/L (45-117); BILIRUBIN,TOTAL 0.7 mg/dL (0.2-1.0); SGOT/AST 28 U/L (15-37); SGPT/ALT 16 U/L (12-78); TOT PROT 6.1 g/dl (6.4-8.2)
[2017-09-04] MEDS: morphine SULFATE 4 MG/ML VIAL IVPUSH PRN ×2 (08:51→15:37)
[2017-09-04] MEDS ORDERED: LOSARTAN 50MG/HCTZ 12.5MG 1 TAB (FP) PO SCH (10:00)
[2017-09-04] MEDS ORDERED: ENOXAPARIN NA (PORCINE) 40 MG/0.4 ML DISP.SYRIN SQ SCH (10:00)
[2017-09-04] MEDS ORDERED: PANTOPRAZOLE 20 MG TABLET (FP) PO SCH (10:00)
[2017-09-04] MEDS ORDERED: cloNIDine HCL 0.1 MG TABLET PO SCH (10:00)
[2017-09-04] MEDS: ENOXAPARIN NA (PORCINE) 40 MG/0.4 ML DISP.SYRIN SQ SCH (10:18)
[2017-09-04] MEDS: PANTOPRAZOLE 20 MG TABLET (FP) PO SCH (10:18)
[2017-09-04] MEDS: cloNIDine HCL 0.1 MG TABLET PO SCH (10:18)
--- NOTE | 2017-09-04 10:25 | PN ---
Progress Note (short form) - Note Progress Note: c/o hip pain. improved with pain medication. denies Cp, SOB, fever, chills, N/V/ C/D. had colonoscopy many years ago and was negative per pt Current Medications Generic Name Dose Route Start Last Admin Trade Name Ilsa PRN Reason Stop Dose Admin Atorvastatin Calcium 20 mg 09/03/17 22:00 09/03/17 22:32 Lipitor - PO 20 mg HS KATERYNA Administration Clonidine 0.1 mg 09/04/17 10:00 09/04/17 10:18 Catapres - PO 0.1 mg DAILY KATERYNA Administration Enoxaparin Sodium 40 mg 09/04/17 10:00 09/04/17 10:18 Lovenox - SQ 40 mg DAILY KATERYNA Administration Lactated Ringer's 1,000 mls @ 75 mls/hr 09/03/17 15:52 09/04/17 06:09 Lactated Ringers Solution IV 75 mls/hr ASDIR KATERYNA Administration Sodium Chloride 1,000 mls @ 100 mls/hr 09/03/17 15:52 09/03/17 22:30 Normal Saline - IV Not Given ASDIR KATERYNA Insulin Aspart 1 vial 09/03/17 16:30 09/04/17 06:42 Novolog Vial Sliding Scale - SQ Not Given ACHS KATERYNA Protocol Morphine Sulfate 2 mg 09/03/17 15:52 09/04/17 08:51 Morphine Sulfate IVPUSH 2 mg Q4H PRN Administration PAIN LEVEL 6-10 Ondansetron HCl 4 mg 09/03/17 16:08 Zofran Injection IVPUSH Q6H PRN NAUSEA AND/OR VOMITING Pantoprazole Sodium 20 mg 09/04/17 10:00 09/04/17 10:18 Protonix - PO 20 mg DAILY KATERYNA Administration Last Vital Signs Temp Pulse Resp BP Pulse Ox 98.9 F 85 18 143/64 100 09/04/17 06:00 09/04/17 06:00 09/03/17 21:00 09/04/17 06:00 09/03/17 21:00 General NAD HEENT L orbit depressed CV S1 S2 RRR no murmur/rub/gallop Lungs CTA anteriorly Abdomen soft NT/ND obese Extremities RLE tender to hip. surgical dressing c/d/i. no swelling or brusing noted to the leg CBCD WBC 5.5 K/mm3 (4.0-10.0) 09/04/17 07:20 RBC 3.61 M/mm3 (3.60-5.2) 09/04/17 07:20 Hgb 10.4 GM/dL (10.7-15.3) L D 09/04/17 07:20 Hct 30.5 % (32.4-45.2) L D 09/04/17 07:20 MCV 84.4 fl (80-96) 09/04/17 07:20 MCHC 33.9 g/dl (32.0-36.0) 09/04/17 07:20 RDW 13.6 % (11.6-15.6) 09/04/17 07:20 Plt Count 190 K/MM3 (134-434) 09/04/17 07:20 MPV 8.3 fl (7.5-11.1) 09/04/17 07:20 CMP Sodium 136 mmol/L (136-145) 09/04/17 07:20 Potassium 3.6 mmol/L (3.5-5.1) 09/04/17 07:20 Chloride 97 mmol/L (98-107) L 09/04/17 07:20 Carbon Dioxide 26 mmol/L (21-32) 09/04/17 07:20 Anion Gap 13 (8-16) 09/04/17 07:20 BUN 28 mg/dL (7-18) H 09/04/17 07:20 Creatinine 1.0 mg/dL (0.55-1.02) 09/04/17 07:20 Creat Clearance w eGFR 53.48 (>60) 09/04/17 07:20 Calcium 8.3 mg/dL (8.5-10.1) L 09/04/17 07:20 Total Bilirubin 0.7 mg/dL (0.2-1.0) D 09/04/17 07:20 AST 28 U/L (15-37) 09/04/17 07:20 ALT 16 U/L (12-78) 09/04/17 07:20 Alkaline Phosphatase 43 U/L (45-117) L 09/04/17 07:20 Total Protein 6.1 g/dl (6.4-8.2) L 09/04/17 07:20 Albumin 2.7 g/dl (3.4-5.0) L 09/04/17 07:20 ASSESSMENT AND PLAN: 77yo F wtih PMH DM, HTN. seizures and glaucoma presenting to the ER s/p mechanical fall and found to have R intertrochanter fracture 1. R inter-trochanteric fracture- due to mechanical fall. s/p R IM gamma nail . no surgical complications. pt only requested pain medication 2x. encouraged her to request if needed. pain control. PT assessment. ortho on board. 2. ELIAZAR-likely dehydration vs medication induced (on HCTZ/ARB). resolved. will d/ c IVF. avoid nephrotoxic medications 3. DM- hold oral agents. iss, bgm. diabetic diet when advanced. 4. HTN- above goal. re-start arb. hold HCTZ. titrate to optimize control 5. Normocytic anemia- liekly dilutional. no swelling noted in the RLE. reported minimal EBL during surgery. will repeat CBC this afternoon. txn as needed. 6. Glaucoma- s/p L eye enucleation 7. DVT ppx- lovenox 8. PT post surgery. will need [facility] placement Visit type - Emergency Visit Emergency Visit: Yes ED Registration Date: 09/03/17 Care time: The patient presented to the Emergency Department on the above date and was hospitalized for further evaluation of their emergent condition. - New Patient This patient is new to me today: No - Critical Care Critical Care patient: No - Discharge Referral Referred to [facility] Med P.C.: No
[2017-09-04 14:02] LABS: HEMATOCRIT 29.7 % (32.4-45.2); HEMOGLOBIN 10.1 GM/dL (10.7-15.3); MCH 28.7 pg (25.7-33.7); MEAN CELL VOLUME 84.4 fl (80-96); MEAN PLT VOLUME 7.7 fl (7.5-11.1); PLATELET COUNT 196 K/MM3 (134-434); RBC 3.52 M/mm3 (3.60-5.2); RDW 13.7 % (11.6-15.6)
[2017-09-04] MEDS: LOSARTAN POTASSIUM 50 MG TABLET (FP) PO SCH (15:02)
--- NOTE | 2017-09-04 18:02 | PN ---
Progress Note (short form) - Note Progress Note: Ortho Pt seen and examined s/p right IM gamma nail pod #1 Selected Entries 09/04/17 15:15 Temperature 100.0 F H Pulse Rate 97 H Respiratory 20 Rate Blood Pressure 134/66 Laboratory Tests 09/04/17 13:50 WBC 5.0 Hgb 10.1 L Hct 29.7 L Plt Count 196 dressing c/d/i, calf soft, nt nvi a/p PT dvt ppx pain control d/c planning
[2017-09-04] MEDS ORDERED: INSULIN (NOVOLOG) ASPART 100 UNITS/ML 10ML VIAL ONE (21:23)
[2017-09-04] MEDS: ATORVASTATIN CA 20 MG TABLET (FP) PO SCH (21:43)
[2017-09-05] MEDS: INSULIN SLIDING SCALE (NOVOLOG) 1 VIAL SQ SCH ×4 (06:50→21:35)
[2017-09-05] MEDS ORDERED: PT OWN MED DRAWER 7, Y5N ONE ×2 (06:51→10:08)
[2017-09-05 07:57] LABS: HEMOGLOBIN 9.3 GM/dL (10.7-15.3); MCH 28.3 pg (25.7-33.7); MCHC 33.4 g/dl (32.0-36.0); MEAN CELL VOLUME 84.9 fl (80-96); MEAN PLT VOLUME 8.1 fl (7.5-11.1); PLATELET COUNT 199 K/MM3 (134-434); RBC 3.29 M/mm3 (3.60-5.2); RDW 13.7 % (11.6-15.6); WHITE BLOOD COUNT 5.8 K/mm3 (4.0-10.0)
--- NOTE | 2017-09-05 09:26 | PN ---
Physical Exam: SUBJECTIVE: Patient seen and examined. States pain well controlled. Denies fever , chills, abdominal pain, CP. OBJECTIVE: Vital Signs Period Temp Pulse Resp BP Sys/Esqueda Pulse Ox Last 24 Hr 99.7 F-100.0 F 83-97 18-22 126-143/54-74 97 GENERAL: lying comfortably in bed, aaox3 HEENT: sclera anicteric, conjunctiva clear, MMM LUNGS: CTAB HEART: rrr, normal s1/s2, no m/r/g ABDOMEN: soft, NTND, +bowel sounds EXTREMITIES: 2+ DP pulses, wwp, no edema, R hip dressing c/d/i, no e/o hematoma or R thigh swelling; no ttp proximal femur NEUROLOGICAL: Cranial nerves II through XII grossly intact, but not formally tested CBC, BMP 09/05/17 07:15 09/04/17 07:20 Hepatic Panel Total Bilirubin 0.7 mg/dL (0.2-1.0) D 09/04/17 07:20 AST 28 U/L (15-37) 09/04/17 07:20 ALT 16 U/L (12-78) 09/04/17 07:20 Alkaline Phosphatase 43 U/L (45-117) L 09/04/17 07:20 Albumin 2.7 g/dl (3.4-5.0) L 09/04/17 07:20 Active Medications Atorvastatin Calcium (Lipitor -) 20 mg PO HS KATERYNA Last Admin: 09/04/17 21:43 Dose: 20 mg Clonidine (Catapres -) 0.1 mg PO DAILY KATERYNA Last Admin: 09/04/17 10:18 Dose: 0.1 mg Enoxaparin Sodium (Lovenox -) 40 mg SQ DAILY KATERYNA Last Admin: 09/04/17 10:18 Dose: 40 mg Insulin Aspart (Novolog Vial Sliding Scale -) 1 vial SQ ACHS KATERYNA PRN Reason: Protocol Last Admin: 09/04/17 21:43 Dose: Not Given Losartan Potassium (Cozaar -) 100 mg PO DAILY [facility] Last Admin: 09/04/17 15:02 Dose: 100 mg Morphine Sulfate (Morphine Sulfate) 2 mg IVPUSH Q4H PRN PRN Reason: PAIN LEVEL 6-10 Last Admin: 09/04/17 15:37 Dose: 2 mg Ondansetron HCl (Zofran Injection) 4 mg IVPUSH Q6H PRN PRN Reason: NAUSEA AND/OR VOMITING Pantoprazole Sodium (Protonix -) 20 mg PO DAILY KATERYNA Last Admin: 09/04/17 10:18 Dose: 20 mg ASSESSMENT/PLAN: 77yo woman with PMH of HTN, NIDDM, and glaucoma s/p L eye enucleation who presents after mechanical fall 5 days ago and found to have R intertrochanteric fracture. #POD2 s/p gamma nail for R hip fracture -morphine 2mg q4h prn for pain -zofran prn for nausea -PT -incentive spirometry #HTN -home clonidine 0.1mg daily and Losartan/HCTZ 100-25mg QD #NIDDM -hold home oral antiglycemics -BGM/ISS ACHS #HLD - Lipitor 20mg HS #FEN: PO fluids / lytes wnl / Na controlled #PPX -DVT - Lovenox 40mg SQ daily x 2wks, then ASA -GI - protonix 20mg po daily #PT and early ambulation #DISPO: m/s, d/c to [facility] FULL code d/w Dr. Paige Ireland MD PGY1 - Internal Medicine Visit type - Emergency Visit Emergency Visit: No - New Patient This patient is new to me today: No - Critical Care Critical Care patient: No
[2017-09-05] MEDS: ENOXAPARIN NA (PORCINE) 40 MG/0.4 ML DISP.SYRIN SQ SCH (10:19)
[2017-09-05] MEDS: PANTOPRAZOLE 20 MG TABLET (FP) PO SCH (10:19)
[2017-09-05] MEDS: cloNIDine HCL 0.1 MG TABLET PO SCH (10:19)
[2017-09-05] MEDS: LOSARTAN POTASSIUM 50 MG TABLET (FP) PO SCH (10:19)
--- NOTE | 2017-09-05 14:07 | PN ---
Teaching Attending Note Name of Resident: Alia Ireland ATTENDING PHYSICIAN STATEMENT I saw and evaluated the patient. I reviewed the resident's note and discussed the case with the resident. I agree with the resident's findings and plan as documented. SUBJECTIVE:c/o R leg pain, improved with pain medications. denies Cp, SOB, fever , chills, N/V/C/D OBJECTIVE: Last Vital Signs Temp Pulse Resp BP Pulse Ox 99.8 F H 86 22 122/58 96 09/05/17 06:00 09/05/17 10:00 09/05/17 10:00 09/05/17 10:00 09/05/17 09:00 General NAD ExtremitiesRLE not tender or swollen. bandages on hip c/d/i ASSESSMENT AND PLAN: 77yo F wtih PMH DM, HTN. seizures and glaucoma presenting to the ER s/p mechanical fall and found to have R intertrochanter fracture 1. R inter-trochanteric fracture- due to mechanical fall. s/p R IM gamma nail . no surgical complications. pain controlled. PT assessment. ortho on board. 2. ELIAZAR-likely dehydration vs medication induced (on HCTZ/ARB). resolved. avoid nephrotoxic medications 3. DM- hold oral agents. iss, bgm. diabetic diet when advanced. controlled with minimal coverage. 4. HTN- improved. cont ARB. cont to hold HCTZ. titrate to optimize control 5. Normocytic anemia- liekly dilutional. no swelling noted in the RLE. reported minimal EBL during surgery. Hgb low but stable. will cont to trend. txn as needed. 6. Glaucoma- s/p L eye enucleation 7. DVT ppx- lovenox 8. PT post surgery. will need [facility] placement
[2017-09-05] MEDS ORDERED: INSULIN (NOVOLOG) ASPART 100 UNITS/ML 10ML VIAL ONE (21:18)
[2017-09-05] MEDS: ATORVASTATIN CA 20 MG TABLET (FP) PO SCH (21:35)
--- NOTE | 2017-09-05 21:56 | EKG ---
Test Reason : Blood Pressure : / mmHG Vent. Rate : 093 BPM Atrial Rate : 096 BPM P-R Int : 184 ms QRS Dur : 086 ms QT Int : 364 ms P-R-T Axes : 075 031 047 degrees QTc Int : 452 ms SINUS RHYTHM WITH PREMATURE ATRIAL COMPLEXES WITH ABERRANT CONDUCTION OTHERWISE NORMAL ECG Confirmed by CHARLY TAVAREZ MD ([id number]) on 09/05/2017 9:56:12 PM Referred By: Confirmed By:CHARLY TAVAREZ MD
[2017-09-06] MEDS: INSULIN SLIDING SCALE (NOVOLOG) 1 VIAL SQ SCH ×4 (06:07→21:56)
[2017-09-06 07:31] LABS: HEMATOCRIT 26.7 % (32.4-45.2); HEMOGLOBIN 8.9 GM/dL (10.7-15.3); MCH 28.3 pg (25.7-33.7); MCHC 33.5 g/dl (32.0-36.0); MEAN CELL VOLUME 84.6 fl (80-96); MEAN PLT VOLUME 7.7 fl (7.5-11.1); PLATELET COUNT 215 K/MM3 (134-434); RBC 3.15 M/mm3 (3.60-5.2); RDW 13.5 % (11.6-15.6)
[2017-09-06 08:34] LABS: ALBUMIN 2.3 g/dl (3.4-5.0); ANION GAP 7 (8-16); BILIRUBIN,TOTAL 0.5 mg/dL (0.2-1.0); BLOOD UREA NITROGEN 19 mg/dL (7-18); CALCIUM 8.3 mg/dL (8.5-10.1); CHLORIDE 104 mmol/L (98-107); CO2 29 mmol/L (21-32); CREATININE 0.9 mg/dL (0.55-1.02); GLUCOSE,RANDOM 100 mg/dL (74-106); POTASSIUM 3.7 mmol/L (3.5-5.1); SGOT/AST 43 U/L (15-37); SGPT/ALT 21 U/L (12-78); SODIUM 140 mmol/L (136-145); TOT PROT 5.4 g/dl (6.4-8.2)
[2017-09-06 08:35] LABS: ALK PHOS 61 U/L (45-117)
--- NOTE | 2017-09-06 08:47 | PN ---
Physical Exam: SUBJECTIVE: Patient seen and examined. No events overnight. C/o of some leg pain when she moves in bed; no fever, chills, cp, sob, abdominal pain. Eating and voiding well. OBJECTIVE: Vital Signs Period Temp Pulse Resp BP Sys/Esqueda Pulse Ox Last 24 Hr 98.9 F-99.1 F 66-86 20-22 98-154/47-61 96-96 GENERAL: lying comfortably in bed, aaox3 HEENT: sclera anicteric, conjunctiva clear, MMM LUNGS: CTAB HEART: rrr, normal s1/s2, no m/r/g ABDOMEN: soft, NTND, +bowel sounds EXTREMITIES: 2+ DP pulses, wwp, no edema, R hip dressing c/d/i, R soft, no bruising or increased circumference NEUROLOGICAL: Cranial nerves II through XII grossly intact, but not formally tested CBC, BMP 09/06/17 07:19 09/06/17 07:19 Hepatic Panel Total Bilirubin 0.5 mg/dL (0.2-1.0) D 09/06/17 07:19 AST 43 U/L (15-37) H 09/06/17 07:19 ALT 21 U/L (12-78) 09/06/17 07:19 Alkaline Phosphatase 61 U/L (45-117) 09/06/17 07:19 Albumin 2.3 g/dl (3.4-5.0) L 09/06/17 07:19 Active Medications Atorvastatin Calcium (Lipitor -) 20 mg PO HS [facility] Last Admin: 09/05/17 21:35 Dose: 20 mg Clonidine (Catapres -) 0.1 mg PO DAILY [facility] Last Admin: 09/06/17 09:37 Dose: 0.1 mg Enoxaparin Sodium (Lovenox -) 40 mg SQ DAILY [facility] Last Admin: 09/06/17 09:37 Dose: 40 mg Insulin Aspart (Novolog Vial Sliding Scale -) 1 vial SQ ACHS KATERYNA PRN Reason: Protocol Last Admin: 09/06/17 17:00 Dose: Not Given Losartan Potassium (Cozaar -) 100 mg PO DAILY [facility] Last Admin: 09/06/17 09:37 Dose: 100 mg Ondansetron HCl (Zofran Injection) 4 mg IVPUSH Q6H PRN PRN Reason: NAUSEA AND/OR VOMITING Pantoprazole Sodium (Protonix -) 20 mg PO DAILY KATERYNA Last Admin: 09/06/17 09:37 Dose: 20 mg ASSESSMENT/PLAN: 77yo woman with PMH of HTN, NIDDM, and glaucoma s/p L eye enucleation who presents after mechanical fall 5 days ago and found to have R intertrochanteric fracture. #POD3 s/p gamma nail for R hip fracture -morphine 2mg q4h prn for pain -zofran prn for nausea -PT -incentive spirometry #HTN -home clonidine 0.1mg daily and Losartan/HCTZ 100-25mg QD #NIDDM -hold home oral antiglycemics -BGM/ISS ACHS #HLD - Lipitor 20mg HS #FEN: PO fluids / lytes wnl / Na controlled #PPX -DVT - Lovenox 40mg SQ daily x 2wks, then ASA -GI - protonix 20mg po daily #PT and early ambulation #DISPO: m/s, d/c to [facility] FULL code d/w Dr. Paige Ireland MD PGY1 - Internal Medicine Visit type - Emergency Visit Emergency Visit: No - New Patient This patient is new to me today: No - Critical Care Critical Care patient: No
[2017-09-06] MEDS ORDERED: PT OWN MED DRAWER 7, Y5N ONE (09:31)
[2017-09-06] MEDS: PANTOPRAZOLE 20 MG TABLET (FP) PO SCH (09:37)
[2017-09-06] MEDS: cloNIDine HCL 0.1 MG TABLET PO SCH (09:37)
[2017-09-06] MEDS: LOSARTAN POTASSIUM 50 MG TABLET (FP) PO SCH (09:37)
[2017-09-06] MEDS: ENOXAPARIN NA (PORCINE) 40 MG/0.4 ML DISP.SYRIN SQ SCH (09:37)
--- NOTE | 2017-09-06 09:42 | PN ---
Progress Note (short form) - Note Progress Note: Ortho Pt seen and examined s/p right IM gamma nail pod #3 Selected Entries 09/06/17 09:00 Temperature 99.6 F Pulse Rate 80 Respiratory 20 Rate Blood Pressure 141/60 Laboratory Tests 09/06/17 07:19 WBC 6.0 Hgb 8.9 L Hct 26.7 L Plt Count 215 dressing c/d/i, calf soft, nt nvi a/p PT dvt ppx pain control d/c planning
--- NOTE | 2017-09-06 13:12 | PN ---
Teaching Attending Note Name of Resident: Alia Ireland ATTENDING PHYSICIAN STATEMENT I saw and evaluated the patient. I reviewed the resident's note and discussed the case with the resident. I agree with the resident's findings and plan as documented. SUBJECTIVE:asymptomatic. denies CP, SOB, fever, chills, N/V/C/D OBJECTIVE: Last Vital Signs Temp Pulse Resp BP Pulse Ox 99.6 F 80 20 141/60 96 09/06/17 09:00 09/06/17 09:00 09/06/17 09:00 09/06/17 09:00 09/05/17 21:00 General NAD Extremities RLE not tender or swollen. bandages on hip c/d/i ASSESSMENT AND PLAN: 77yo F wtih PMH DM, HTN. seizures and glaucoma presenting to the ER s/p mechanical fall and found to have R intertrochanter fracture 1. R inter-trochanteric fracture- due to mechanical fall. s/p R IM gamma nail . no surgical complications. pain controlled. PT assessment. ortho on board. 2. ELIAZAR-likely dehydration vs medication induced (on HCTZ/ARB). resolved. avoid nephrotoxic medications 3. DM- hold oral agents. iss, bgm. diabetic diet when advanced. controlled with minimal coverage. 4. HTN- improved. cont ARB. cont to hold HCTZ. titrate to optimize control 5. Normocytic anemia- liekly dilutional. no swelling noted in the RLE. reported minimal EBL during surgery. Hgb low but stable. iron studies pending. txn as needed. 6. Glaucoma- s/p L eye enucleation 7. DVT ppx- lovenox 8. PT post surgery. will need [facility] placement
[2017-09-06] MEDS ORDERED: INSULIN (NOVOLOG) ASPART 100 UNITS/ML 10ML VIAL ONE (21:25)
[2017-09-06] MEDS: ATORVASTATIN CA 20 MG TABLET (FP) PO SCH (21:56)
[2017-09-07] MEDS: INSULIN SLIDING SCALE (NOVOLOG) 1 VIAL SQ SCH ×5 (06:22→21:40)
[2017-09-07 08:02] LABS: HEMATOCRIT 28.1 % (32.4-45.2); HEMOGLOBIN 9.5 GM/dL (10.7-15.3); MCH 28.5 pg (25.7-33.7); MCHC 33.8 g/dl (32.0-36.0); MEAN CELL VOLUME 84.4 fl (80-96); MEAN PLT VOLUME 7.6 fl (7.5-11.1); PLATELET COUNT 286 K/MM3 (134-434); RBC 3.33 M/mm3 (3.60-5.2); RDW 13.6 % (11.6-15.6)
[2017-09-07 08:07] LABS: SERUM IRON SATURATION 11 % (15-55); TOTAL IRON BINDING CAPACITY 166 ug/dL (250-450); UIBC 148 ug/dL (118-369)
[2017-09-07 08:14] LABS: CHLORIDE 105 mmol/L (98-107); POTASSIUM 3.9 mmol/L (3.5-5.1); SODIUM 139 mmol/L (136-145)
[2017-09-07 08:21] LABS: ALBUMIN 2.3 g/dl (3.4-5.0); ALK PHOS 63 U/L (45-117); ANION GAP 4 (8-16); BILIRUBIN,TOTAL 0.5 mg/dL (0.2-1.0); BLOOD UREA NITROGEN 14 mg/dL (7-18); CALCIUM 8.8 mg/dL (8.5-10.1); CO2 30 mmol/L (21-32); CREATININE 0.7 mg/dL (0.55-1.02); GLUCOSE,RANDOM 97 mg/dL (74-106); SGOT/AST 37 U/L (15-37); SGPT/ALT 29 U/L (12-78); TOT PROT 5.5 g/dl (6.4-8.2)
[2017-09-07] MEDS ORDERED: PT OWN MED DRAWER 7, Y5N ONE (09:03)
[2017-09-07] MEDS: PANTOPRAZOLE 20 MG TABLET (FP) PO SCH (09:06)
[2017-09-07] MEDS: LOSARTAN POTASSIUM 50 MG TABLET (FP) PO SCH (09:06)
[2017-09-07] MEDS: ENOXAPARIN NA (PORCINE) 40 MG/0.4 ML DISP.SYRIN SQ SCH (09:06)
[2017-09-07] MEDS: cloNIDine HCL 0.1 MG TABLET PO SCH (09:06)
[2017-09-07] MEDS ORDERED: ACETAMINOPHEN 325 MG TABLET (FP) PO PRN (09:24)
[2017-09-07] MEDS ORDERED: SENNOSIDES 8.6MG TABLET (FP) PO PRN (09:24)
--- NOTE | 2017-09-07 09:26 | PN ---
Teaching Attending Note Name of Resident: Alia Ireland ATTENDING PHYSICIAN STATEMENT I saw and evaluated the patient. I reviewed the resident's note and discussed the case with the resident. I agree with the resident's findings and plan as documented with exceptions mentioned below. SUBJECTIVE: Patient seen and examined. no pain, but reported right pain to [employer] when turned for clean up, no other complaints. OBJECTIVE: Vital Signs Period Temp Pulse Resp BP Sys/Esqueda Pulse Ox Last 24 Hr 98.9 F-99.6 F 67-81 20-20 103-145/55-74 100 Intake & Output 09/04/17 09/05/17 09/06/17 09/07/17 23:59 23:59 23:59 23:59 Intake Total 1425 600 300 Balance 1425 600 300 General lying in bed no acute distress Extremities Right hip dressing clean, no swelling or erythema, positive pulses. Abdomen soft, NT, ND, positive bowel sounds Home Medication List Medication Instructions Recorded Confirmed Type Clonidine HCl 0.1 mg PO DAILY 09/03/17 09/03/17 History Glipizide [Glipizide ER] 2.5 mg PO BID 09/03/17 09/03/17 History Losartan/Hydrochlorothiazide 1 each PO DAILY 09/03/17 09/03/17 History [Losartan-Hctz 100-25 mg Tab] Metformin HCl 500 mg PO BID 09/03/17 09/03/17 History Omeprazole 20 mg PO DAILY 09/03/17 09/03/17 History Simvastatin [Zocor -] 40 mg PO HS 09/03/17 09/03/17 History Active Medications Generic Name Dose Route Start Last Admin Trade Name Princeq PRN Reason Stop Dose Admin Acetaminophen 650 mg 09/07/17 09:24 Tylenol - PO Q4H PRN PAIN Atorvastatin Calcium 20 mg 09/03/17 22:00 09/06/17 21:56 Lipitor - PO 20 mg HS KATERYNA Administration Clonidine 0.1 mg 09/04/17 10:00 09/07/17 09:06 Catapres - PO 0.1 mg DAILY KATERYNA Administration Docusate Sodium 100 mg 09/07/17 10:00 Colace - PO BID KATERYNA Enoxaparin Sodium 40 mg 09/04/17 10:00 09/07/17 09:06 Lovenox - SQ 40 mg DAILY KATERYNA Administration Ferrous Sulfate 325 mg 09/07/17 10:00 Feosol - PO DAILY KATERYNA Insulin Aspart 1 vial 09/03/17 16:30 09/07/17 06:22 Novolog Vial Sliding Scale - SQ Not Given ACHS [facility] Protocol Losartan Potassium 100 mg 09/04/17 10:45 09/07/17 09:06 Cozaar - PO 100 mg DAILY KATERYNA Administration Ondansetron HCl 4 mg 09/03/17 16:08 Zofran Injection IVPUSH Q6H PRN NAUSEA AND/OR VOMITING Pantoprazole Sodium 20 mg 09/04/17 10:00 09/07/17 09:06 Protonix - PO 20 mg DAILY KATERYNA Administration Senna 2 tab 09/07/17 09:24 Senna - PO HS PRN CONSTIPATION Laboratory Results - last 24 hr 09/06/17 09/06/17 09/06/17 07:19 07:19 07:19 WBC RBC Hgb Hct MCV MCH MCHC RDW Plt Count MPV Sodium 140 Potassium 3.7 Chloride 104 Carbon Dioxide 29 Anion Gap 7 L BUN 19 H Creatinine 0.9 Creat Clearance w eGFR > 60 POC Glucometer Random Glucose 100 Calcium 8.3 L Iron 18 L TIBC 166 L Iron Saturation 11 L Ferritin 310.999 H Cancelled Total Bilirubin 0.5 D AST 43 H ALT 21 Alkaline Phosphatase 61 Total Protein 5.4 L Albumin 2.3 L 09/06/17 09/06/17 09/07/17 16:59 21:54 06:19 WBC RBC Hgb Hct MCV MCH MCHC RDW Plt Count MPV Sodium Potassium Chloride Carbon Dioxide Anion Gap BUN Creatinine Creat Clearance w eGFR POC Glucometer 129 130 127 Random Glucose Calcium Iron TIBC Iron Saturation Ferritin Total Bilirubin AST ALT Alkaline Phosphatase Total Protein Albumin 09/07/17 09/07/17 07:22 07:22 WBC 6.0 RBC 3.33 L Hgb 9.5 L Hct 28.1 L MCV 84.4 MCH 28.5 MCHC 33.8 RDW 13.6 Plt Count 286 D MPV 7.6 Sodium 139 Potassium 3.9 Chloride 105 Carbon Dioxide 30 Anion Gap 4 L BUN 14 Creatinine 0.7 Creat Clearance w eGFR > 60 POC Glucometer Random Glucose 97 Calcium 8.8 Iron TIBC Iron Saturation Ferritin Total Bilirubin 0.5 AST 37 ALT 29 Alkaline Phosphatase 63 Total Protein 5.5 L Albumin 2.3 L ASSESSMENT AND PLAN: 77yo F wtih PMH DM, HTN. seizures and glaucoma presenting to the ER s/p mechanical fall and found to have R intertrochanter fracture -Right intertrochanteric fracture s/p R IM gamma nail 09/03 -Mild ELIAZAR on admission, suspect dehydration+/- medication related (Losartan/HCTZ ) -NIDDM -HTN -Iron deficiency anemia -Glaucoma s/p L eye enucleation Plan POD day 4, Starting standing tylenol as patient not requesting prn meds, Add bowel regimen. Continue PT. FOllow up with CM for dispo planning, incentive spirometry. Discuss with ortho about DVTPPx ELIAZAR resolved. ARB resumed, resume HCTZ based on BP readings. Continue clonidine. ISS, diabetic diet. Hold oral hypoglycemics Start PO iron and outpatient h/h monitoring and PCP follow up for screening. DVTPPX with Lovenox Dispo anticipate d/c to [facility] pending bed availability, follow up with CM.
--- NOTE | 2017-09-07 09:47 | PN ---
Physical Exam: SUBJECTIVE: Patient seen and examined. No events overnight. Leg pain with PT and movement; no fever, chills, cp, sob, abdominal pain. Eating and voiding well. OBJECTIVE: Vital Signs Period Temp Pulse Resp BP Sys/Esqueda Pulse Ox Last 24 Hr 98.9 F-99.6 F 67-81 20-20 103-145/55-74 100 GENERAL: lying comfortably in bed, aaox3 HEENT: sclera anicteric, conjunctiva clear, MMM LUNGS: CTAB HEART: rrr, normal s1/s2, no m/r/g ABDOMEN: soft, NTND, +bowel sounds EXTREMITIES: 2+ DP pulses, wwp, no edema, R hip dressing c/d/i, R soft, no bruising or increased circumference NEUROLOGICAL: Cranial nerves II through XII grossly intact, but not formally tested CBC, BMP 09/07/17 07:22 09/07/17 07:22 Hepatic Panel Total Bilirubin 0.5 mg/dL (0.2-1.0) 09/07/17 07:22 AST 37 U/L (15-37) 09/07/17 07:22 ALT 29 U/L (12-78) 09/07/17 07:22 Alkaline Phosphatase 63 U/L (45-117) 09/07/17 07:22 Albumin 2.3 g/dl (3.4-5.0) L 09/07/17 07:22 Active Medications Acetaminophen (Tylenol -) 975 mg PO TID [facility] Last Admin: 09/07/17 14:55 Dose: 975 mg Atorvastatin Calcium (Lipitor -) 20 mg PO HS [facility] Last Admin: 09/06/17 21:56 Dose: 20 mg Clonidine (Catapres -) 0.1 mg PO DAILY [facility] Last Admin: 09/07/17 09:06 Dose: 0.1 mg Docusate Sodium (Colace -) 100 mg PO BID [facility] Last Admin: 09/07/17 10:45 Dose: 100 mg Enoxaparin Sodium (Lovenox -) 40 mg SQ DAILY [facility] Last Admin: 09/07/17 09:06 Dose: 40 mg Ferrous Sulfate (Feosol -) 325 mg PO DAILY@0800 [facility] Last Admin: 09/07/17 10:45 Dose: 325 mg Insulin Aspart (Novolog Vial Sliding Scale -) 1 vial SQ ACHS [facility] PRN Reason: Protocol Last Admin: 09/07/17 16:00 Dose: Not Given Losartan Potassium (Cozaar -) 100 mg PO DAILY [facility] Last Admin: 09/07/17 09:06 Dose: 100 mg Ondansetron HCl (Zofran Injection) 4 mg IVPUSH Q6H PRN PRN Reason: NAUSEA AND/OR VOMITING Pantoprazole Sodium (Protonix -) 20 mg PO DAILY [facility] Last Admin: 09/07/17 09:06 Dose: 20 mg Senna (Senna -) 2 tab PO HS PRN PRN Reason: CONSTIPATION ASSESSMENT/PLAN: 77yo woman with PMH of HTN, NIDDM, and glaucoma s/p L eye enucleation who presents after mechanical fall 5 days ago and found to have R intertrochanteric fracture. #POD4 s/p gamma nail for R hip fracture -Tylenol 975mg PO TID -PT -incentive spirometry #HTN -home clonidine 0.1mg daily and Losartan/HCTZ 100-25mg QD #NIDDM -hold home oral antiglycemics -BGM/ISS ACHS #HLD - Lipitor 20mg HS #FEN: PO fluids / lytes wnl / Na controlled #PPX -DVT - Lovenox 40mg SQ daily x 2wks, then ASA -GI - protonix 20mg po daily #PT and early ambulation #DISPO: m/s, awaiting [facility] placement FULL code d/w Dr. Vanessa Ireland MD PGY1 - Internal Medicine Visit type - Emergency Visit Emergency Visit: No - New Patient This patient is new to me today: No - Critical Care Critical Care patient: No
[2017-09-07] MEDS: FERROUS SO4 325 MG TABLET (FP) PO SCH (10:45)
[2017-09-07] MEDS: DOCUSATE SODIUM 100 MG CAPSULE (FP) PO SCH ×2 (10:45→21:36)
--- NOTE | 2017-09-07 14:37 | PN ---
Progress Note (short form) - Note Progress Note: Ortho Pt seen and examined s/p right IM gamma nail pod #4 Selected Entries 09/07/17 10:49 Temperature 98.5 F Pulse Rate 68 Respiratory 22 Rate Blood Pressure 142/70 Laboratory Tests 09/07/17 07:22 WBC 6.0 Hgb 9.5 L Hct 28.1 L Plt Count 286 D dressing c/d/i, calf soft, nt nvi a/p PT dvt ppx pain control d/c planning
[2017-09-07] MEDS: ACETAMINOPHEN 325 MG TABLET (FP) PO SCH ×2 (14:55→21:36)
[2017-09-07] MEDS ORDERED: INSULIN (NOVOLOG) ASPART 100 UNITS/ML 10ML VIAL ONE (21:02)
[2017-09-07] MEDS: ATORVASTATIN CA 20 MG TABLET (FP) PO SCH (21:36)
[2017-09-08] MEDS: INSULIN SLIDING SCALE (NOVOLOG) 1 VIAL SQ SCH ×3 (06:28→17:02)
[2017-09-08] MEDS: ACETAMINOPHEN 325 MG TABLET (FP) PO SCH ×2 (06:30→14:41)
--- NOTE | 2017-09-08 07:45 | PN ---
Physical Exam: SUBJECTIVE: Patient seen and examined OBJECTIVE: Vital Signs Period Temp Pulse Resp BP Sys/Esqueda Pulse Ox Last 24 Hr 97.6 F-99.1 F 65-89 18-22 120-145/61-70 97-97 GENERAL: The patient is awake, alert, and fully oriented, in no acute distress. HEAD: Normal with no signs of trauma. EYES: PERRL, extraocular movements intact, sclera anicteric, conjunctiva clear. No ptosis. ENT: Ears normal, nares patent, oropharynx clear without exudates, moist mucous membranes. NECK: Trachea midline, full range of motion, supple. LUNGS: Breath sounds equal, clear to auscultation bilaterally, no wheezes, no crackles, no accessory muscle use. HEART: Regular rate and rhythm, S1, S2 without murmur, rub or gallop. ABDOMEN: Soft, nontender, nondistended, normoactive bowel sounds, no guarding, no rebound, no hepatosplenomegaly, no masses. EXTREMITIES: 2+ pulses, warm, well-perfused, no edema. NEUROLOGICAL: Cranial nerves II through XII grossly intact. Normal speech, gait not observed. PSYCH: Normal mood, normal affect. SKIN: Warm, dry, normal turgor, no rashes or lesions noted Laboratory Results - last 24 hr 09/06/17 09/07/17 09/07/17 07:19 07:22 07:22 WBC 6.0 RBC 3.33 L Hgb 9.5 L Hct 28.1 L MCV 84.4 MCH 28.5 MCHC 33.8 RDW 13.6 Plt Count 286 D MPV 7.6 Sodium 139 Potassium 3.9 Chloride 105 Carbon Dioxide 30 Anion Gap 4 L BUN 14 Creatinine 0.7 Creat Clearance w eGFR > 60 POC Glucometer Random Glucose 97 Calcium 8.8 Iron 18 L TIBC 166 L Iron Saturation 11 L Total Bilirubin 0.5 AST 37 ALT 29 Alkaline Phosphatase 63 Total Protein 5.5 L Albumin 2.3 L 09/07/17 09/07/17 09/07/17 12:01 15:58 21:11 WBC RBC Hgb Hct MCV MCH MCHC RDW Plt Count MPV Sodium Potassium Chloride Carbon Dioxide Anion Gap BUN Creatinine Creat Clearance w eGFR POC Glucometer 130 145 156 Random Glucose Calcium Iron TIBC Iron Saturation Total Bilirubin AST ALT Alkaline Phosphatase Total Protein Albumin 09/08/17 06:27 WBC RBC Hgb Hct MCV MCH MCHC RDW Plt Count MPV Sodium Potassium Chloride Carbon Dioxide Anion Gap BUN Creatinine Creat Clearance w eGFR POC Glucometer 119 Random Glucose Calcium Iron TIBC Iron Saturation Total Bilirubin AST ALT Alkaline Phosphatase Total Protein Albumin Active Medications Generic Name Dose Route Start Last Admin Trade Name Freq PRN Reason Stop Dose Admin Acetaminophen 975 mg 09/07/17 14:00 09/08/17 06:30 Tylenol - PO 975 mg TID KATERYNA Administration Atorvastatin Calcium 20 mg 09/03/17 22:00 09/07/17 21:36 Lipitor - PO 20 mg HS KATERYNA Administration Clonidine 0.1 mg 09/04/17 10:00 09/07/17 09:06 Catapres - PO 0.1 mg DAILY KATERYNA Administration Docusate Sodium 100 mg 09/07/17 10:00 09/07/17 21:36 Colace - PO 100 mg BID KATERYNA Administration Enoxaparin Sodium 40 mg 09/04/17 10:00 09/07/17 09:06 Lovenox - SQ 40 mg DAILY KATERYNA Administration Ferrous Sulfate 325 mg 09/07/17 10:00 09/07/17 10:45 Feosol - PO 325 mg DAILY@0800 KATERYNA Administration Insulin Aspart 1 vial 09/03/17 16:30 09/08/17 06:28 Novolog Vial Sliding Scale - SQ Not Given ACHS [facility] Protocol Losartan Potassium 100 mg 09/04/17 10:45 09/07/17 09:06 Cozaar - PO 100 mg DAILY KATERYNA Administration Ondansetron HCl 4 mg 09/03/17 16:08 Zofran Injection IVPUSH Q6H PRN NAUSEA AND/OR VOMITING Pantoprazole Sodium 20 mg 09/04/17 10:00 09/07/17 09:06 Protonix - PO 20 mg DAILY KATERYNA Administration Senna 2 tab 09/07/17 09:24 Senna - PO HS PRN CONSTIPATION ASSESSMENT/PLAN:
[2017-09-08] MEDS: FERROUS SO4 325 MG TABLET (FP) PO SCH (08:58)
[2017-09-08] MEDS ORDERED: PT OWN MED DRAWER 7, Y5N ONE (10:02)
[2017-09-08] MEDS: LOSARTAN POTASSIUM 50 MG TABLET (FP) PO SCH (10:04)
[2017-09-08] MEDS: DOCUSATE SODIUM 100 MG CAPSULE (FP) PO SCH (10:04)
[2017-09-08] MEDS: PANTOPRAZOLE 20 MG TABLET (FP) PO SCH (10:04)
[2017-09-08] MEDS: cloNIDine HCL 0.1 MG TABLET PO SCH (10:04)
[2017-09-08] MEDS: ENOXAPARIN NA (PORCINE) 40 MG/0.4 ML DISP.SYRIN SQ SCH (10:06)
[2017-09-08 11:31] VITALS: BP 130/68; PULSE 71
--- NOTE | 2017-09-08 14:29 | PN ---
Teaching Attending Note Name of Resident: Alia Ireland ATTENDING PHYSICIAN STATEMENT I saw and evaluated the patient. I reviewed the resident's note and discussed the case with the resident. I agree with the resident's findings and plan as documented with exceptions mentioned below. SUBJECTIVE: Patient seen and examined. no complaints, having lunch. OBJECTIVE: Vital Signs Period Temp Pulse Resp BP Sys/Esqueda Pulse Ox Last 24 Hr 97.6 F-99.1 F 65-89 18-20 120-145/61-68 97 Intake & Output 09/05/17 09/06/17 09/07/17 09/08/17 23:59 23:59 23:59 23:59 Intake Total 600 300 500 Balance 600 300 500 General: sitting in bed in no acute distress Extremities: right hip dressing clean, no edema, positive pulses Home Medication List Medication Instructions Recorded Confirmed Type Clonidine HCl 0.1 mg PO DAILY 09/03/17 09/03/17 History Losartan/Hydrochlorothiazide 1 each PO DAILY 09/03/17 09/03/17 History [Losartan-Hctz 100-25 mg Tab] Metformin HCl 500 mg PO BID 09/03/17 09/03/17 History Omeprazole 20 mg PO DAILY 09/03/17 09/03/17 History Simvastatin [Zocor -] 40 mg PO HS 09/03/17 09/03/17 History Active Medications Generic Name Dose Route Start Last Admin Trade Name Freq PRN Reason Stop Dose Admin Acetaminophen 975 mg 09/07/17 14:00 09/08/17 06:30 Tylenol - PO 975 mg TID KATERYNA Administration Atorvastatin Calcium 20 mg 09/03/17 22:00 09/07/17 21:36 Lipitor - PO 20 mg HS KATERYNA Administration Clonidine 0.1 mg 09/04/17 10:00 09/08/17 10:04 Catapres - PO 0.1 mg DAILY KATERYNA Administration Docusate Sodium 100 mg 09/07/17 10:00 09/08/17 10:04 Colace - PO 100 mg BID KATERYNA Administration Enoxaparin Sodium 40 mg 09/04/17 10:00 09/08/17 10:06 Lovenox - SQ Not Given DAILY KATERYNA Ferrous Sulfate 325 mg 09/07/17 10:00 09/08/17 08:58 Feosol - PO 325 mg DAILY@0800 KATERYNA Administration Insulin Aspart 1 vial 09/03/17 16:30 03/28/18 11:56 Novolog Vial Sliding Scale - SQ Not Given ACHS KATERYNA Protocol Losartan Potassium 100 mg 09/04/17 10:45 09/08/17 10:04 Cozaar - PO 100 mg DAILY KATERYNA Administration Ondansetron HCl 4 mg 09/03/17 16:08 Zofran Injection IVPUSH Q6H PRN NAUSEA AND/OR VOMITING Pantoprazole Sodium 20 mg 09/04/17 10:00 09/08/17 10:04 Protonix - PO 20 mg DAILY KATERYNA Administration Senna 2 tab 09/07/17 09:24 Senna - PO HS PRN CONSTIPATION ASSESSMENT AND PLAN: 77yo F wtih PMH DM, HTN. seizures and glaucoma presenting to the ER s/p mechanical fall and found to have R intertrochanter fracture -Right intertrochanteric fracture s/p R IM gamma nail 09/03 -Mild ELIAZAR on admission, suspect dehydration+/- medication related (Losartan/HCTZ ) -NIDDM -HTN -Iron deficiency anemia -Glaucoma s/p L eye enucleation Plan POD day 5, Doing well. Tylenol prn, bowel regimen, incentive spirometry. Resume metformin. d/c on ISS and glipizide to be resumed based on blood sugars at SNF. Continue home anti-hypertensives. Iron suppl. Lovenox x 2 weeks, then ASA D/c to [facility] today.
--- NOTE | 2017-09-08 15:07 | DS ---
Physical Exam: SUBJECTIVE: Patient seen and examined OBJECTIVE: Vital Signs Period Temp Pulse Resp BP Sys/Esqueda Pulse Ox Last 24 Hr 97.6 F-97.9 F 65-89 18-20 120-145/61-68 97 PHYSICAL EXAM GENERAL: The patient is awake, alert, and fully oriented, in no acute distress. HEAD: Normal with no signs of trauma. EYES: PERRL, extraocular movements intact, sclera anicteric, conjunctiva clear. ENT: Ears normal, nares patent, oropharynx clear without exudates, moist mucous membranes. NECK: Trachea midline, full range of motion, supple. LUNGS: Breath sounds equal, clear to auscultation bilaterally, no wheezes, no crackles, no accessory muscle use. HEART: Regular rate and rhythm, S1, S2 without murmur, rub or gallop. ABDOMEN: Soft, nontender, nondistended, normoactive bowel sounds, no guarding, no rebound, no hepatosplenomegaly, no masses. EXTREMITIES: 2+ pulses, warm, well-perfused, no edema. NEUROLOGICAL: Cranial nerves II through XII grossly intact. Normal speech, gait not observed. PSYCH: Normal mood, normal affect. SKIN: Warm, dry, normal turgor, no rashes or lesions noted. LABS Laboratory Results - last 24 hr 09/07/17 09/07/17 09/08/17 15:58 21:11 06:27 WBC Corrected WBC (auto) RBC Hgb Hct MCV MCH MCHC RDW Plt Count MPV Manual Slide Review Platelet Comment POC Glucometer 145 156 119 09/08/17 09/08/17 06:40 11:54 WBC Cancelled Corrected WBC (auto) Cancelled RBC Cancelled Hgb Cancelled Hct Cancelled MCV Cancelled MCH Cancelled MCHC Cancelled RDW Cancelled Plt Count Cancelled MPV Cancelled Manual Slide Review Cancelled Platelet Comment Cancelled POC Glucometer 123 HOSPITAL COURSE: Date of Admission:09/03/17 Date of Discharge: 09/08/17 Discharge Summary Reason For Visit: FRACTURE OF HIP Current Active Problems HTN (hypertension) (Acute) Hip fracture (Acute) NIDDY (non-insulin dependent diabetes mellitus in young) (Acute) Smoker (Acute) Condition: Improved - Instructions Diet, Activity, Other Instructions: You were admitted to the hospital after falling and fracturing your right hip. You needed to have surgery to repair your hip. You are being transferred to a rehab facility in order to rebuild your strength. Follow the recommendations of the providers at the rehabilitation facility for diet, medications, and physical therapy. Continue incentive spirometry as able at the SNF. Medications: You can continue to taking your regular home medications with the following changes: 1) You were started on Iron supplementation. 2) You were started on Lovenox 40mg SQ daily, which you will continue taking until 09/18/17. On 09/19/17, start taking Aspirin 325mg daily. 3) Based on your blood sugars, your glipizide is currently being held (you were on it at 2.5 mg twice daily at home). Advise blood sugar checks before meals and bedtime at SNF and resume based on blood sugars per SNF MD. Follow-ups: -Make an appointment with Dr. Mojica, your Orthopedist, to discuss when you should stop taking the Aspirin, and to evaluation your progress after discharge from rehabilitation. -Make an appointment to see your primary care doctor within 1 week after discharge from rehab. Recommend interval monitoring of your blood counts (CBC) with your doctor and discuss outpatient Gastroenterology referral for endoscopy/ colonoscopy screening. Please return to the Emergency Room if you have any new, worsening, or concerning symptoms. Referrals: Douglas Mojica MD [Staff Physician] - Ann Vaughn MD [Primary Care Provider] - Disposition: ALF FACILITY - Home Medications Comprehensive Discharge Medication List: Ambulatory Orders Clonidine HCl 0.1 mg PO DAILY 09/03/17 Losartan/Hydrochlorothiazide [Losartan-Hctz 100-25 mg Tab] 1 each PO DAILY 09/03 Metformin HCl 500 mg PO BID 09/03/17 Omeprazole 20 mg PO DAILY 09/03/17 Simvastatin [Zocor -] 40 mg PO HS 09/03/17 Docusate Sodium [Colace -] 100 mg PO BID capsule 09/08/17 Enoxaparin [Lovenox -] 40 mg SQ DAILY disp.syrin 09/08/17 Ferrous Sulfate [Feosol] 325 mg PO DAILY@0800 ud 09/08/17 Insulin Sliding Scale [Novolog Vial Sliding Scale -] 1 vial SQ ACHS units 09/08 Sennosides [Senna -] 2 tab PO HS PRN tablet 09/08/17 - Discharge Referral Referred to [facility] No
[2017-09-08 15:10] VITALS: TEMP 98.7
== END 2017-09-08 18:01 | DRG 481 ==
LOC: JER 09:49 → JERBED 13:10 → J6S 17:15
PROVIDERS: ADMIT Internal Medicine; ATTEND Hospitalist
PROC: 0QS604Z Reposition Right Upper Femur with Internal Fixation Device, Open Approach (ICD-10-PCS; principal; 2017-09-03 15:00)
DX: S72.141A Displaced intertrochanteric fracture of right femur, initial encounter for closed fracture (principal); N17.9 Acute kidney failure, unspecified; I10 Essential (primary) hypertension; E11.9 Type 2 diabetes mellitus without complications; H40.9 Unspecified glaucoma; H54.40 Blindness, one eye, unspecified eye; F17.200 Nicotine dependence, unspecified, uncomplicated; W01.0XXA Fall on same level from slipping, tripping and stumbling without subsequent striking against object, initial encounter; Y93.9 Activity, unspecified; Y92.009 Unspecified place in unspecified non-institutional (private) residence as the place of occurrence of the external cause; E86.0 Dehydration; D50.9 Iron deficiency anemia, unspecified
CPT/HCPCS: 36415; 70450-TC; 73523-TC-FY; 76000-TC-FY; 80048; 80053; 82728; 82962; 83540; 83550; 85025; 85027; 85610; 85730; 86850; 86900; 86901; 93005; 93010; 94760; 97116-GP; 97161-GP; 99284-25; J0131; J0735

== ENCOUNTER 2018-05-03 03:11 | Emergency (ER) | payer OTHER ==
--- NOTE | 2018-05-03 03:33 | PDOC ---
Attending Attestation - Resident Resident Name: Eber Valero - HPI HPI: 05/03/18 04:45 Pt presents to the ED after found in cardiac arrest by EMS. Found by EMS in [place] , CPR started and epi x 4 given along with bicarb x 1 with ROSC. STEMI on monitor as per EMS. Intubated by EMS. Patient lost pulses again while on ambulance, given epi x 2. In asystole on arrival. 05/03/18 04:53 - Physicial Exam PE: 05/03/18 04:53 Patient in asystole on arrival, pulseless and apneic, with fixed and dilated pupils. ETT placement confirmed by auscultation. 05/03/18 04:53 - Medical Decision Making 05/03/18 04:54 Pt presents to the ED in cardiac arrest despite multiple rounds of epi by EMS. Found to be in asystole, with fixed and dilated pupils. At this point, further resuscitative efforts were determined to be futile and patient was pronounced at 3:18 am. [facility] notified and declined case. Attempted to notify PMD, but doctor sanitation worker cleaning equipment reports that she may not have been seen at that practice for more than one year.
--- NOTE | 2018-05-03 03:39 | PDOC ---
History of Present Illness - General Chief Complaint: Cardiac Arrest Stated Complaint: UNRESPONSIVE Time Seen by Provider: 05/03/18 03:32 - History of Present Illness Initial Comments: 05/03/18 03:32 Ms. Camarillo is an 78 yo female w/ pmh of DM who presents after being found down at approximately 2:10am. Call was placed to EMS as patient unresponsive. Upon arrival EMS found BGM of 150. Patient was noted to be in asystole. Compressions started with RAUL device. Patient was intubated with 7.0; 24 at lip. 3 rounds epinephrine and 1 bicarb were given; then an additional epinephrine and rosc obtained. Patient noted to have pulses and ST-GA noted on EKG. Patient returned to asystole before they were able to get patient to ambulance. 2 more rounds of epi were done en route to ER. Past History - Past Medical History Allergies/Adverse Reactions: Allergies Allergy/AdvReac Type Severity Reaction Status Date / Time No Known Allergies Allergy Verified 05/03/18 03:27 Home Medications: Ambulatory Orders Clonidine HCl 0.1 mg PO DAILY 09/03/17 Losartan/Hydrochlorothiazide [Losartan-Hctz 100-25 mg Tab] 1 each PO DAILY 09/03 Omeprazole 20 mg PO DAILY 09/03/17 Simvastatin [Zocor -] 40 mg PO HS 09/03/17 metFORMIN HCL [Metformin HCl] 500 mg PO BID 09/03/17 Docusate Sodium [Colace -] 100 mg PO BID capsule 09/08/17 Enoxaparin [Lovenox -] 40 mg SQ DAILY disp.syrin 09/08/17 Ferrous Sulfate [Feosol] 325 mg PO DAILY@0800 ud 09/08/17 Insulin Sliding Scale [Novolog Vial Sliding Scale -] 1 vial SQ ACHS units 09/08 Sennosides [Senna -] 2 tab PO HS PRN tablet 09/08/17 COPD: No Diabetes: Yes Seizures: Yes - Suicide/Smoking/Psychosocial Hx Smoking Status: No Smoking History: Unknown if ever smoked Years of Tobacco Use: 20 Have you smoked in the past 12 months: Yes Number of Cigarettes Smoked Daily: 2 Hx Alcohol Use: No Drug/Substance Use Hx: No Substance Use Type: Alcohol Review of Systems - Review of Systems Comments:: 05/03/18 03:36 Unable to obtain further. *Physical Exam - Vital Signs Last Vital Signs Temp Pulse Resp BP Pulse Ox 0 F L 0 L 0 L 000/00 L 0 L 05/03/18 03:11 05/03/18 03:11 05/03/18 03:11 05/03/18 03:11 05/03/18 03:11 Medical Decision Making - Medical Decision Making 05/03/18 03:36 Patient arrived intubated with compressions in progress; one IO line in lower extremity. Patient placed on monitor and intubation tube checked. Pulse checked yielded no discernable pulse and no electrical impulses noted on monitor. Patient given additional epinephrine with no effect. Compressions continued; no pulse appreciable on repeat evaluation. Patient time of called at 0318. *DC/Admit/Observation/Transfer Diagnosis at time of Disposition: Asystole - Discharge Dispostion Disposition: Condition at time of disposition: Critical - Referrals Referrals: Ann Vaughn MD [Primary Care Provider] - - Patient Instructions - Post Discharge Activity
[2018-05-03 03:51] VITALS: BP 000/00; PULSE 0; TEMP 0; BMI 19.5
== END 2018-05-03 03:45 | disposition expired ==
LOC: JER 03:11
DX: I46.9 Cardiac arrest, cause unspecified (principal); I10 Essential (primary) hypertension; E78.00 Pure hypercholesterolemia, unspecified; E11.9 Type 2 diabetes mellitus without complications; Z79.4 Long term (current) use of insulin; Z79.84 Long term (current) use of oral hypoglycemic drugs
CPT/HCPCS: 92950; 99285-25